=== PATIENT | female | born 1980 | race Caucasian/White ===

== ENCOUNTER 2021-07-18 10:01 | Emergency (ER) | payer OTHER, SELFPAY ==
[2021-07-18 10:17] VITALS: BP 115/74; PULSE 104; RESP 18; TEMP 36.3; O2SAT 100
--- NOTE | 2021-07-18 10:28 | ED.URI ---
HPI - URI/Sore Throat General Chief Complaint: Upper Respiratory Infection Stated Complaint: fever,sorethorat,congestion Time Seen by Provider: 07/18/21 10:29 Source: patient Mode of arrival: ambulatory Limitations: no limitations History of Present Illness HPI Narrative: 41-year-old female presents with complaint of runny nose, sore throat, cough, low-grade fever, body aches and headache for 4 days. Taking [id number] medications to treat her symptoms. Reports that she just visited [place] with family. Denies chest pain and shortness of breath. No other symptoms. Patient is COVID vaccinated. All systems reviewed and negative except as noted above. Related Data Home Medications Medication Instructions Recorded Confirmed Unknown Iud 07/18/21 cetirizine 10 mg DAILY 07/18/21 07/18/21 cholecalciferol (vitamin D3) 50 mcg PO DAILY 07/18/21 07/18/21 colestipol 1 g PO QID 07/18/21 07/18/21 levothyroxine 50 mcg DIRECTED 07/18/21 07/18/21 Allergies Allergy/AdvReac Type Severity Reaction Status Date / Time metoclopramide Allergy Mild Muscle Unverified 07/18/21 10:29 Spasms prochlorperazine Allergy Mild Muscle Unverified 07/18/21 10:29 Spasms Review of Systems Review of Systems: CONSTITUTIONAL: Reports fever, chills, or sweats. EYES: Denies visual changes, redness, or discharge. ENT: Reports rhinorrhea, congestion, sore throat. Denies otalgia. CARDIOVASCULAR: Denies chest pain, palpitations, or edema. RESPIRATORY: Reports cough. Denies dyspnea. GASTROINTESTINAL: Denies abdominal pain, nausea, vomiting, or diarrhea. GENITOURINARY: Denies dysuria or hematuria. SKIN: Denies rash or itching. MUSCULOSKELETAL: Denies back pain, joint pain, or myalgia. NEUROLOGIC: Denies headache, numbness, or weakness. PSYCHIATRIC: Denies anxiety or depression. All other systems reviewed are negative, except as documented in HPI. PMFSH Comments At time of signature, agree with nursing past medical, surgical, social and family history. There is no relevant family history pertinent to the presenting complaint. Exam Narrative: GENERAL: This is a well-nourished, well-developed patient. Patient is ill-appearing but in no distress. HEAD: normocephalic, atraumatic. EYES: PERRL. Sclera clear/white. Vision is grossly intact. EARS: External ears normal, auditory canals clear and without drainage, TMs normal without perforation. Hearing grossly intact. NOSE: External nose normal with clear nasal drainage. THROAT: Mucous membranes moist, posterior pharynx clear. NECK: Neck supple, non-tender without lymphadenopathy, masses or thyromegaly. CARDIOVASCULAR: Regular rate and rhythm without murmurs, gallops, or rubs. RESPIRATORY: Clear to auscultation. Breath sounds equal bilaterally. No wheezes, rales, or rhonchi. SKIN: warm, Dry, intact with no suspicious lesions or rash, good texture and turgor. NEURO: awake, alert, and oriented to person, place and time. There were no obvious focal neurologic abnormalities. EXTREMITIES: N normal range of motion to all extremities. Course Course Level of Care: Express Care Visit Vital Signs Vital signs: Vital Signs Temperature 36.3 C L 07/18/21 10:17 Pulse Rate 104 H 07/18/21 10:17 Respiratory Rate 18 07/18/21 10:17 Blood Pressure 115/74 07/18/21 10:17 Pulse Oximetry 100 07/18/21 10:17 Temperature 36.3 C L 07/18/21 10:17 Pulse Rate 104 H 07/18/21 10:17 Respiratory Rate 18 07/18/21 10:17 Blood Pressure 115/74 07/18/21 10:17 Pulse Oximetry 100 07/18/21 10:17 Reviewed MDM - URI/Sore Throat MDM Narrative Medical decision making narrative: Patient is aware of diagnosis, understands and agrees to treatment plan. Anticipatory guidance given. Patient agrees to follow-up as directed and is aware of reasons to seek care at the emergency department. Portions of this record may have been created with voice recognition software Rapid COVID-positive. Discussed resul
== END 2021-07-18 10:44 | disposition home or self-care (01) ==
PROVIDERS: Emergency Provider Nurse Practitioner Family; PCP Family Medicine
DX: U07.1 COVID-19 (principal)
CPT/HCPCS: 87081; 87426; 87804; 87880; 99213; C9803; G0463

== ENCOUNTER 2021-09-24 15:03 | Emergency (ER) | payer OTHER, SELFPAY ==
[2021-09-24 15:21] VITALS: BP 114/61; PULSE 83; RESP 18; TEMP 36.8; O2SAT 100
--- NOTE | 2021-09-24 15:44 | ED.SKABFB ---
HPI - Skin/Abscess/Foreign Bdy General Chief complaint: Urogenital-Female Stated complaint: Possible UTI Time Seen by Provider: 09/24/21 15:45 History of Present Illness HPI narrative: Destini Restrepo is a 41 yo female a PMH of hypothyroid, cystitis, who comes with complaints of feeling full mild tenderness to her abdomen typical symptoms when he she has a cystitis flare she is being treated for interstitial cystitis and is not currently on anything but her urologist states that when she develops the symptoms and 6 treatments that she should make sure that the urine dipstick is followed up by a culture. She has leukocyte esterase in her urine and because she is symptomatic well I will go ahead and treat her She had COVID 2 months ago and still has post-COVID cough and is requesting something to help manage that Related Data Home Medications Medication Instructions Recorded Confirmed cetirizine 10 mg tablet 10 mg DAILY 07/18/21 09/24/21 cholecalciferol (vitamin D3) 50 50 mcg PO DAILY 07/18/21 09/24/21 mcg (2,000 unit) tablet colestipol 1 gram tablet 1 g PO QID 07/18/21 09/24/21 levothyroxine 50 mcg tablet 50 mcg DIRECTED 07/18/21 09/24/21 escitalopram oxalate 10 mg tablet 10 mg PO DAILY 09/24/21 09/24/21 levonorgestrel 20 mcg/24 hours (7 See Rx Instructions .Route .COMPLEX 09/24/21 09/24/21 yrs) 52 mg intrauterine device (Mirena) Allergies Allergy/AdvReac Type Severity Reaction Status Date / Time metoclopramide Allergy Mild Muscle Verified 09/24/21 15:16 Spasms prochlorperazine Allergy Mild Muscle Verified 09/24/21 15:16 Spasms Review of Systems Review of Systems: CONSTITUTIONAL: Denies fever, chills, sweats. EYES: Denies visual changes, redness, discharge. ENT: Denies rhinorrhea, congestion, sore throat, otalgia. CARDIOVASCULAR: Denies chest pain, palpitations, edema. RESPIRATORY: Denies dyspnea, wheezing,has cough GASTROINTESTINAL: Denies abdominal pain, nausea, vomiting, diarrhea. GENITOURINARY: Has dysuria, hematuria, abnormal discharge SKIN: Denies rash or itching. NEUROLOGIC: Denies numbness, or focal weakness. PSYCHIATRIC: Denies anxiety or depression. [facility] Past Medical History Medical History Cystitis Hypothyroid Social History Social History (Updated 09/24/21 @ 15:48 by Willa Salazar CNP) Smoking status: Never smoker Alcohol intake: never Comments At time of signature, I agree with nursing past medical, surgical, social and family history. There is no relevant family history pertinent to the presenting complaint. Exam Narrative: GENERAL: This is a well-nourished, well-developed patient, in mild distress. HEAD: normocephalic, atraumatic. EYES: . Sclera clear/white. Vision is grossly intact. EARS: External ears normal, . Hearing grossly intact. NOSE: External nose normal without nasal discharge, nares without redness, no rhinorrhea. THROAT: Mucous membranes moist, NECK: Neck supple, non-tender CARDIOVASCULAR: Regular rate and rhythm without murmurs, gallops, or rubs. RESPIRATORY: Clear to auscultation. Breath sounds equal bilaterally. No wheezes, rales, or rhonchi. GASTROINTESTINAL: Abdomen soft, mild tender, SKIN: warm, intact with no suspicious lesions or rash, good texture and turgor. NEURO: awake, alert, and oriented to person, place and time. There were no obvious focal neurologic abnormalities. Steady gait EXTREMITIES: Normal range of motion. BACK: Nontender without deformity Course Course Emergency Course: Patient here with symptoms of a cystitis flare she is being treated for interstitial cystitis Urine dip shows trace leukocyte Treated with Keflex 500 mg 1 twice daily x5 days and Diflucan for possible fungal infection Given Tessalon Perles for post-COVID cough Level of Care: Express Care Visit Vital Signs Vital signs: Vital Signs Temperature 98.2 F 09/24/21 15:21 Pulse Rate 83 07
== END 2021-09-24 15:58 | disposition home or self-care (01) ==
PROVIDERS: Emergency Provider Nurse Practitioner; PCP Family Medicine
DX: N30.90 Cystitis, unspecified without hematuria (principal); R05.9 Cough, unspecified; U09.9 Post COVID-19 condition, unspecified; E03.9 Hypothyroidism, unspecified
CPT/HCPCS: 81003; 87086; 99213; G0463

== ENCOUNTER 2024-10-24 09:55 | Emergency (ER) | payer OTHER, SELFPAY ==
--- NOTE | 2024-10-24 09:58 | ED.FEMALEGU ---
HPI - Female Genitourinary General Chief complaint: Urogenital-Female Stated complaint: Urinary Irritation Time Seen by Provider: 10/24/24 09:59 Source: patient Mode of arrival: ambulatory Limitations: no limitations History of Present Illness HPI Narrative: Destini is a 44-year-old female patient presenting to the clinic today with complaints of burning with urination and urinary frequency x1 week. Is concerned that she is having a interstitial cystitis flare however she wants to rule out a urinary tract infection. Denies any nausea, back pain, or abdominal pain. States pain is specifically over her bladder and she has urinary frequency. Denies any concern for STIs. Denies any vaginal discharge. Related Data Home Medications ?Medication ?Instructions ?Recorded ?Confirmed ?Last Taken ?Type cetirizine 10 mg tablet 10 mg DAILY 07/18/21 07/17/24 Unknown History colestipol 1 gram tablet 1 g PO QID 07/18/21 07/17/24 Unknown History levothyroxine 50 mcg tablet 50 mcg DIRECTED 07/18/21 07/17/24 Unknown History levonorgestrel 20.4 mcg/24 hr (up 1 device intrauterine ONCE 06/02/24 07/17/24 Unknown History to 8 yrs) 52 mg intrauterine device (Liletta) lisdexamfetamine 70 mg capsule mg PO 06/02/24 07/17/24 Unknown History (Vyvanse) vilazodone 20 mg tablet mg PO 06/02/24 07/17/24 Unknown History Allergies Allergy/AdvReac Type Severity Reaction Status Date / Time metoclopramide Allergy Mild Muscle Verified 10/24/24 10:05 Spasms prochlorperazine Allergy Mild Muscle Verified 10/24/24 10:05 Spasms PMFSH Past Medical History Medical History Presence of Liletta IUD Anxiety Allergies Hypothyroid Cystitis Surgical History Surgical History S/P small bowel resection History of cholecystectomy Hx of appendectomy H/O laparoscopy 2001 and 2009 Family History Family History Sibling Colon cancer Depression Grandparent Colon cancer Diabetes mellitus Thyroid disease Mother Depression Social History Social History (Updated 07/17/24 @ 09:22 by Hernando Licea MA) Smoking status: Never smoker Alcohol intake: never Substance use: never Substance use type: does not use Current Housing: Decline to Answer Concerned About Future Housing: Decline to Answer Difficulty Paying Gas/Electric Bills: Decline to Answer Difficulty Paying for Meds: Decline to Answer Currently Unemployed: Decline to Answer Education: Decline to Answer Difficulty w/ Childcare or Family Care: Decline to Answer Living arrangements: with family Occupation/Education: occupation Additional occupation/education comments: [employer] Comments At the time of my signature, I reviewed and agree with the nursing past medical, surgical, social, and family history. There is no relevant family history pertinent to the patient complaint. Course Course Emergency Course: Portions of this record may have been created with voice recognition software. Level of Care: Express Care Visit Vital Signs Vital signs: Vital Signs Temperature 36.4 C L 10/24/24 10:02 Pulse Rate 88 10/24/24 10:02 Respiratory Rate 18 10/24/24 10:02 Blood Pressure 115/64 10/24/24 10:02 Pulse Oximetry 100 10/24/24 10:02 Oxygen Delivery Room Air 10/24/24 10:02 Temperature 36.4 C L 10/24/24 10:02 Pulse Rate 88 10/24/24 10:02 Respiratory Rate 18 10/24/24 10:02 Blood Pressure 115/64 10/24/24 10:02 Pulse Oximetry 100 10/24/24 10:02 Oxygen Delivery Room Air 10/24/24 10:02 Vital signs reviewed MDM - Female Genitourinary MDM Narrative Medical decision making narrative: At the time of visit patient is resting comfortably on the exam table. Patient appears to be nontoxic. complaints of burning with urination and urinary frequency x1 week. Is concerned that she is having a interstitial cystitis flare however she wants to rule out a urinary tract infection. Denies any nausea, back pain, or abdominal pain. States pain is specifically over her bladder and she has urinary frequency. Denies any concern for STIs. Denies any vaginal discharge. On exam patient has suprapubic tenderness, normal bowel sounds, nontender to palpation over the abdomen, no CVAT tenderness. UA dip ordered. Labs: Urinalysis dip was performed and is negative for any sign of leukocytes, nitrates, blood, protein, or ketones. Plan: I suspect patient has interstitial cystitis flare. Will send urine for culture per patient request. Supportive measures were discussed with the patient and they voiced understanding discharge instructions and agrees to treatment plan. Return precautions reviewed Differential Diagnosis Differential diagnosis: Likely urinary tract infection and cystitis Lab Data Labs: Lab Results 10/24/24 Range/Units 10:07 POC Urine Color Dark POC Urine Clarity Clear POC Urine pH 5.5 POC Ur Specif [place] 1.025 POC Urine Protein Negative (Negative) POC Ur Glucose (UA) Negative (Negative) POC Urine Ketones Negative (Negative) POC Urine Blood Negative (Negative) POC Urine Nitrite Negative (Negative) POC Urine Bilirubin Negative (Negative) POC Urine Urobilinogen 0.2 POC U Leukocyte Esteras Negative (Negative) Discharge Plan Discharge Clinical Impression: Interstitial cystitis Patient Disposition: Home Condition: Stable Instructions: Antibiotic Form, Interstitial Cystitis (ED) Additional Instructions: Urinalysis is negative for any sign of infection, blood, protein, or ketones. Will send for culture. May take azo as discussed for urinary symptoms Increase fluids and stay well hydrated Wipe front to back. May use wet wipes. Avoid tub baths If sexually active- pee before and after intercourse. Wear cotton panties Avoid tight clothing up against the genitals Follow up with your PCP in 1 week if symptoms persist. Patient Language: Tuvaluan Prescriptions: No Action cetirizine 10 mg tablet 10 mg DAILY levothyroxine 50 mcg tablet 50 mcg DIRECTED colestipol 1 gram tablet 1 g PO QID lisdexamfetamine [Vyvanse] 70 mg capsule PO vilazodone 20 mg tablet PO Liletta 20.4 mcg/24 hr (8 yrs) 52 mg intrauterine device 1 device intrauterine ONCE Rx Instructions: as a single dose estradiol [Vivelle-Dot] 0.075 mg/24 hr patch semiweekly 1 patch transdermal 2XW Qty: 8 11RF Rx Instructions: apply 1 patch for 3 days alternating with 1 patch for 4 days each week Follow-up/Referrals: Eddie,NOAH Cota [Primary Care Provider, Unknown] Time of Disposition: 10:23 Quality NIHSS Nursing Documentation ED NIHSS nursing documentation: reviewed/agree
--- OUTSIDE RECORDS SUMMARY | 2024-10-24 09:58 | XMS_ITS | Continuity of Care Document ---
Author Name [facility] Organization [facility] Care Team Providers Care Fire Safety Manager Name Role Phone [facility] Unavailable Unavailable Problems Combined list of problems from Department of Defense and Veterans Affairs facilities. It does not include entries that were removed or entered in error. 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 DoD FATIGUE Active Condition DoD STRABISMUS - RIGHT EYE Active Condition DoD Cervix Sample Taken For Pap Smear Inactive Condition DoD ROUTINE GYNECOLOGICAL EXAM WITH CERVICAL PAP SMEAR Inactive Condition DoD CYSTITIS CHRONIC INTERSTITIAL Active Condition DoD Patient Education Inactive Condition DoD BREAST LUMP OR MASS LEFT Active Condition DoD visit for: screening exam malignant neoplasm skin Inactive Condition DoD BENIGN SKIN NEOPLASM Inactive Condition [facility] Gynecologic Services Intrauterine Device (IUD) Checking Inactive Condition Do[facility] Gynecologic Services Intrauterine Device (IUD) Insertion Active Condition [facility] Gynecologic Services Contraceptive General Counseling Active Condition DoD Macules And Papules Inactive Condition D oD joint pain, localized in the wrist Active Condition DoD CYSTOCELE Active Condition DoD VAGINAL WALL PROLAPSE Active Condition DoD HYPERTHYROIDISM Active Condition DoD DYSPAREUNIA Active Condition DoD MASTITIS ACUTE RIGHT Active Condition DoD visit for: routine eye exam Inactive Condition DoD Laboratory Studies Inactive Condition Do D CONDITIONS INFLUENCING HEALTH STATUS Active Condition DoD CONJUNCTIVITIS CHRONIC ALLERGIC Active Condition DoD MULTIPLE GESTATION Inactive Condition Do D Patient Education - Dietary Active Condition DoD Diabetes Patient Education - Blood Glucose Monitor Home Active Condition DoD Patient Education - Diabetes Inactive Condition DoD visit for: screening exam for malignant neoplasm cervix Inactive Condition DoD DIABETES TRINI GESTATIONAL - ANTEPART COND OR PRIOR COMP DELIV Active Condition DoD COMPLICATIONS: ABNORMAL GLUCOSE TOLERANCE Active Condition DoD MULTIPLE GESTATION - TWINS - ANTEPARTUM CONDITION OR COMPLIC Inactive Condition DoD visit for: screening exam depression Inactive Condition DoD Ed Initial Visit Description Of Care Plan Inactive Condition DoD pain during urination (dysuria) Active Condition DoD Test Positive Inactive Condition DoD FEMALE PELVIC PAIN Inactive Condition Do D AMBLYOPIA STRABISMIC RIGHT EYE Active Condition [facility] ASTIGMATISM - REGULAR Active Condition [facility] REFRACTIVE ERROR - MYOPIA Active Condition [facility] visit for: new patient eye exam Inactive Condition [facility] headache Inactive Condition [facility] MIGRAINE HEADACHE Active Condition [facility] FEMALE INFERTILITY SECONDARY Active Condition [facility] FEMALE INFERTILITY Active Condition [facility] visit for: administrative purpose Inactive Condition [facility] visit for: issue medical certificate Active Condition [facility] Inquiry And Counseling: Contraceptive Practices Active Condition Counseled pt about option of IUD. 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 Pt informed that she will likely incur a co-pay since IUD insertion is something that she could have had performed [place] or [place] DoD Medications Combined list of outpatient medications from Department of Defense and Veterans Affairs facilities.Medications provided include 1) outpatient medications from the last 15 months, and 2) patient-reported medications. Medication Details Route Status Patient Instructions Prescription Expires Prescription Number Last Dispense Date Ordering Provider Order Date Order Qty Source DEXTROAMPHE TAMINE-AMPH ETAMINE (dextroamph etamine sulf-saccha rate/amphet amine sulf-aspart ate), 20 MG, TABLET, ORAL, [employer], 100 ea. BOTTLE Active [id number] 2023 30 Pharmac y Data Transac tion Service Facilit y levothyroxi ne 75 mcg (0.075 mg) oral tablet TAKE ONE TABLET IN THE MORNING, # 90 EA, 1 total refill(s ), Acute Complet ed 10/02/20222022 90.0 Ambulat ory Pharmac y TIROSINT-SO L (levothyrox ine sodium), 75 MCG/ML, SOLUTION, ORAL, [employer], 1 ml AMPUL Active [id number] 2023 90 Pharmac y Data Transac tion Service Facilit y VYVANSE (LISDEXAMFE TAMINE DIMESYLATE) , 70MG, CAPSULE, ORAL, [employer] 100 ea. BOTTLE Active [id number] 2023 30 Pharmac y Data Transac tion Service Facilit y Allergies, Adverse Reactions, Alerts Combined list of allergies from Department of Defense and Veterans Affairs facilities. It does not include entries that were removed or entered in error. Substance Category Reaction Severity Reaction type Status Date Reported Comments Source COMPAZINE (Local.comERA ZINE MALEATE) Drug allergy (disorder) Unknown active 0 [place] metoclopramid e Propensity to adverse reactions to substance Unknown Active 0 Pt. reports reaction as Muscle Spasms. Unknown Organizat ion prochlorperaz ine Propensity to adverse reactions to substance Unknown Active 0 Pt. reports reaction as Muscle Spasms. Unknown Organizat ion REGLAN (METOCLOPRAMI DE HCL) Drug allergy (disorder) Unknown active 0 [place] Immunizations Combined list of available immunizations from the Department of Defense and Veterans Affairs facilities. Immunization Series Date Given Administered By Site Reaction Lot Number CVX Code Drug Carbide Operator Status Comments Source COVID Vaccine Pfizer 2020 zKamini t Arm [id number] [facility] complet ed COVID Vaccine Pfizer 05/27/20 Given Ambulat ory Pharmac y SARS-COV-2 (COVID-19) vaccine, mRNA, spike protein, LNP, preservative free, 30 mcg/0.3mL dose 2 2020 Unknown, Provider [id number] IPXI, [employer] (PFR) complet ed SARS-COV- 2 (COVID-19 ) vaccine, mRNA, spike protein, LNP, preservat marah free, 30 mcg/0.3mL dose DoD COVID Vaccine Pfizer 2020 zzLef t Arm [id number] 208 [facility] complet ed COVID Vaccine Pfizer 05/05/20 Given Ambulat ory Pharmac y SARS-COV-2 (COVID-19) vaccine, mRNA, spike protein, LNP, preservative free, 30 mcg/0.3mL dose 1 2020 Unknown, Provider [id number] 208 [employer], [employer] (PFR) complet ed SARS-COV- 2 (COVID-19 ) vaccine, mRNA, spike protein, LNP, preservat marah free, 30 mcg/0.3mL dose DoD tuberculin purified protein derivative 2020 zzLef t Arm [id number] 96 sanofi pasteur complet ed Patient Tolerance : Negative Ambulat ory Pharmac y tuberculin skin test; purified protein derivative solution, intradermal 1 2020 Unknown, Provider [id number] 96 Sanofi Pasteur ([facility]) complet ed tuberculi n skin test; purified protein derivativ e solution, intraderm al DoD tuberculin purified protein derivative 2020 zzLef t Arm [id number] 96 sanofi pasteur complet ed Patient Tolerance : Negative Ambulat ory Pharmac y tetanus-dipht h toxoids (Td) adult/adol 2020 zzLef t Arm [id number] 09 sanofi pasteur complet ed tetanus-d iphth toxoids (Td) adult/ado l 03/16/20 Given Ambulat ory Pharmac y influenza, injectable, quadrivalent- pf 2020 zzRig ht Arm [id number] 150 [employer] complet ed influenza , injectabl e, quadrival ent-pf 03/16/20 Given Ambulat ory Pharmac y hepatitis B adult vaccine 2020 zzRig ht Arm [id number] [employer]Smith[employer] ne complet ed hepatitis B adult vaccine 03/16/20 Given Ambulat ory Pharmac y tetanus and diphtheria toxoids, adsorbed, preservative free, for adult use (2 Lf of tetanus toxoid and 2 Lf of diphtheria toxoid) 1 2020 Unknown, Provider [id number] 09 Sanofi Pasteur ([facility]) complet ed tetanus and diphtheri a toxoids, adsorbed, preservat marah free, for adult use (2 Lf of tetanus toxoid and 2 Lf of diphtheri a toxoid) DoD hepatitis B vaccine, adult dosage 1 2020 Unknown, Provider [id number] [facility] ([facility]) complet ed hepatitis B vaccine, adult dosage DoD tuberculin skin test; purified protein derivative solution, intradermal 1 2020 Unknown, Provider [id number] 96 Sanofi Pasteur ([facility]) complet ed tuberculi n skin test; purified protein derivativ e solution, intraderm al DoD Influenza, injectable, quadrivalent, preservative free 1 2020 Unknown, Provider [id number] 150 Se[employer] (SEQ) complet ed Influenza , injectabl e, quadrival ent, preservat marah free DoD influenza, injectable, quadrivalent- pf 2018 [id number] 150 GlaxoSmithKli ne complet ed influenza , injectabl e, quadrival ent-pf 01/10/19 Given Ambulat ory Pharmac y Influenza, injectable, quadrivalent, preservative free 2018 Unknown, Provider [id number] 150 [employer] ([facility]) complet ed Influenza , injectabl e, quadrival ent, preservat marah free DoD influenza, injectable, quadrivalent- pf 2017 zzRig Arm [id number] 150 GlaxoSmithKli ne complet ed influenza , injectabl e, quadrival ent-pf 12/25/17 Given Ambulat ory Pharmac y Influenza, injectable, quadrivalent, preservative free 1 2017 JORGE ANN MARIE Osman [id number] 150 [facility] Influenza , injectabl e, quadrival ent, preservat marah free DoD influenza, injectable, quadrivalent- pf 2016 zzLef t Arm [id number] 150 GlaxoSmithK[employer] ne complet ed influenza , injectabl e, quadrival ent-pf 12/21/16 Given Ambulat ory Pharmac y Influenza, injectable, quadrivalent, preservative free 1 2016 SOLANGE HATFIELD [id number] 150 [facility] complet ed Influenza , injectabl e, quadrival ent, preservat marah free DoD influenza, injectable, [facility]rivalent [id number] [employer] complet ed influenza , injectabl e, quadrival ent 01/24/16 Given Ambulat ory Pharmac y influenza, injectable, quadrivalent, contains preservative 1 2015 Unknown, Provider [id number] (IDB) complet ed influenza , injectabl e, quadrival ent, contains preservat marah DoD influenza, injectable, quadrivalent- pf 2015 zzRig Arm [id number] 150 GlaxoSmithK[employer] ne complet ed influenza , injectabl e, quadrival ent-pf 03/08/15 Given Ambulat ory Pharmac y Influenza, injectable, quadrivalent, preservative free 1 2015 Unknown, Provider [id number] 150 [employer] ([facility]) complet ed Influenza , injectabl e, quadrival ent, preservat marah free DoD influenza, live, intranasal,qu adrivalent 2013 [id number] [employer] comple t ed influenza , live, intranasa l,quadriv alent 12/24/13 Given Ambulat ory Pharmac y influenza, live, intranasal, quadrivalent 1 2013 Unknown, Provider [id number] 149 [employer] ([facility]) complet ed influenza , live, intranasa l, quadrival ent DoD influenza, seasonal, injectable-pf 2013 zzRig ht Arm [id number] 140 sanofi pasteur complet ed influenza , seasonal, injectabl e-pf 04/08/13 Given Ambulat ory Pharmac y Influenza, seasonal, injectable, preservative free 5 2013 Unknown, Provider [id number] 140 Sanofi Pasteur ([facility]) complet ed Influenza , seasonal, injectabl e, preservat marah free DoD influenza, seasonal, injectable-pf 2011 zzRig ht Arm [id number] 140 [employer] complet ed influenza , seasonal, injectabl e-pf 12/06/11 Given Ambulat ory Pharmac y Influenza, seasonal, injectable, preservative free 4 2011 Unknown, Provider [id number] 140 [employer] ([facility]) complet ed Influenza , seasonal, injectabl e, preservat marah free DoD influenza virus vaccine,split 2010 zzRig Arm [id number] 15 [employer] complet ed influenza virus vaccine,s plit 05/25/10 Given Ambulat ory Pharmac y tetanus, diphtheria, acellular pertu is 2010 zzLef t Arm [id number] 115 sanofi pasteur complet ed tetanus, diphtheri a, acellular pertussis 05/25/10 Given Ambulat ory Pharmac y influenza virus vaccine, split virus (incl. purified surface antigen)-reti red CODE 1 2010 Unknown, Provider [id number] 15 [employer] ([facility]) complet ed influenza virus vaccine, split virus (incl. purified surface antigen)- retired CODE DoD tetanus toxoid, reduced diphtheria toxoid, and acellular pertu is vaccine, adsorbed 1 2010 Unknown, Provider [id number] 115 Sanofi Pasteur ([facility]) complet ed tetanus toxoid, reduced diphtheri a toxoid, and acellular pertussis vaccine, adsorbed DoD tuberculin purified protein derivative 2009 zzLef t Arm [id number] 96 sanofi pasteur complet ed Patient Tolerance : Negative Ambulat ory Pharmac y tuberculin skin test; purified protein derivative solution, intradermal 1 2009 Unknown, Provider [id number] 96 Sanofi Pasteur ([facility]) complet ed tuberculi n skin test; purified protein derivativ e solution, intraderm al DoD influenza virus vaccine,split 2008 zzLef t Arm [id number] 15 sanofi pasteur complet ed influenza virus vaccine,s plit 03/19/08 Given Ambulat ory Pharmac y influenza virus vaccine, split virus (incl. purified surface antigen)-reti red CODE 1 2008 Unknown, Provider [id number] 15 Sanofi Pasteur ([facility]) complet ed influenza virus vaccine, split virus (incl. purified surface antigen)- retired CODE DoD influenza virus vaccine,split 2005 zzLef t Arm [id number] 15 sanofi pasteur complet ed influenza virus vaccine,s plit 02/01/06 Given Ambulat ory Pharmac y influenza virus vaccine, split virus (incl. purified surface antigen)-reti red CODE 1 2005 Unknown, Provider [id number] 15 Sanofi Pasteur ([facility]) complet ed influenza virus vaccine, split virus (incl. purified surface antigen)- retired CODE DoD DTaP 2004 Transcr ibed 20 Unknown complet ed DTaP 01/09/05 Given Ambulat ory Pharmac y diphtheria, tetanus toxoids and acellular pertu is vaccine 2 2004 Unknown, Provider Transcr ibed 20 Other (OTH) complet ed diphtheri a, tetanus toxoids and acellular pertussis vaccine DoD hepatitis B pediatric/ado lescent 1996 Transcr ibed 08 Unknown complet ed hepatitis B pediatric /adolesce nt 11/19/96 Given Ambulat ory Pharmac y tetanus, diphtheria, acellular pertu is 1996 115 complet ed tetanus, diphtheri a, acellular pertussis 11/19/96 Given Ambulat ory Pharmac y Td (adult)-PF 1996 113 complet ed Td (adult)-P F 11/19/96 Given Ambulat ory Pharmac y hepatitis B vaccine, pediatric or pediatric/ado lescent dosage 1 1996 Unknown, Provider Transcr ibed 08 Other (OTH) complet ed hepatitis B vaccine, pediatric or pediatric /adolesce nt dosage DoD tetanus and diphtheria toxoids, adsorbed, preservative free, for adult use (5 Lf of tetanus toxoid and 2 Lf of diphtheria toxoid) 1 1996 Unknown, Provider 113 Transcribed (TRS) complet ed tetanus and diphtheri a toxoids, adsorbed, preservat marah free, for adult use (5 Lf of tetanus toxoid and 2 Lf of diphtheri a toxoid) DoD tetanus toxoid, reduced diphtheria toxoid, and acellular pertu is vaccine, adsorbed 1 1996 Unknown, Provider 115 Transcribed (TRS) complet ed tetanus toxoid, reduced diphtheri a toxoid, and acellular pertussis vaccine, adsorbed DoD measles/mumps /rubella virus vaccine 1992 Transcr ibed 03 Unknown complet ed measles/m umps/rube lla virus vaccine 08/05/92 Given Ambulat ory Pharmac y measles, mumps and rubella virus vaccine 2 1992 Unknown, Provider Transcr ibed 03 Other (OTH) complet ed measles, mumps and rubella virus vaccine DoD poliovirus vaccine, inactivated 1987 Transcr ibed 10 Unknown complet ed polioviru s vaccine, inactivat ed 06/11/87 Given Ambulat ory Pharmac y DTaP 1987 Transcr ibed 20 Unknown complet ed DTaP 06/11/87 Given Ambulat ory Pharmac y poliovirus vaccine, inactivated 4 1987 Unknown, Provider Transcr ibed 10 Other (OTH) complet ed polioviru s vaccine, inactivat ed DoD diphtheria, tetanus toxoids and acellular pertu is vaccine 3 1987 Unknown, Provider Transcr ibed 20 Other (OTH) complet ed diphtheri a, tetanus toxoids and acellular pertussis vaccine DoD DTaP 1985 Transcr ibed 20 Unknown complet ed DTaP 08/26/85 Given Ambulat ory Pharmac y diphtheria, tetanus toxoids and acellular pertu is vaccine 3 1985 Unknown, Provider Transcr ibed 20 Other (OTH) complet ed diphtheri a, tetanus toxoids and acellular pertussis vaccine DoD poliovirus vaccine, inactivated 1985 Transcr ibed 10 Unknown complet ed polioviru s vaccine, inactivat ed 05/13/85 Given Ambulat ory Pharmac y poliovirus vaccine, inactivated 3 1985 Unknown, Provider Transcr ibed 10 Other (OTH) complet ed polioviru s vaccine, inactivat ed DoD DTaP 1985 Transcr ibed 20 Unknown complet ed DTaP 05/05/85 Given Ambulat ory Pharmac y diphtheria, tetanus toxoids and acellular pertu is vaccine 3 1985 Unknown, Provider Transcr ibed 20 Other (OTH) complet ed diphtheri a, tetanus toxoids and acellular pertussis vaccine DoD measles/mumps /rubella virus vaccine 1984 Transcr ibed 03 Unknown complet ed measles/m umps/rube lla virus vaccine 02/10/85 Given Ambulat ory Pharmac y measles, mumps and rubella virus vaccine 1 1984 Unknown, Provider Transcr ibed 03 Other (OTH) complet ed measles, mumps and rubella virus vaccine DoD poliovirus vaccine, inactivated 1984 Transcr ibed 10 Unknown complet ed polioviru s vaccine, inactivat ed 01/09/85 Given Ambulat ory Pharmac y poliovirus vaccine, inactivated 2 1984 Unknown, Provider Transcr ibed 10 Other (OTH) complet ed polioviru s vaccine, inactivat ed DoD poliovirus vaccine, inactivated 1984 Transcr ibed 10 Unknown complet ed polioviru s vaccine, inactivat ed 05/03/84 Given Ambulat ory Pharmac y poliovirus vaccine, inactivated 1 1984 Unknown, Provider Transcr ibed 10 Other (OTH) complet ed polioviru s vaccine, inactivat ed DoD DTaP 1982 Transcr ibed 20 Unknown complet ed DTaP 82 Given Ambulat ory Pharmac y diphtheria, tetanus toxoids and acellular pertu is vaccine 1 1982 Unknown, Provider Transcr ibed 20 Other (OTH) complet ed diphtheri a, tetanus toxoids and acellular pertussis vaccine DoD Encounters Combined list of: 1) Encounters from Department of Veterans Affairs facilities going backup to the last 18 months, not all VA inpatient encounters are included; 2) Encounters from the Department of Defense facilities going backup to 280 months. Location Location Details Encounter Type Encounter Number Reason For Visit Attending Provider ADM Date DC Date Status Disposition Source [address] [place] [address] Cesar SEGAL ([facility])(Sco tt [facility] Fam Res [place] [place]) OUTPATIENT [id number] referra URSULA Dickson 10/23 Released w/o Limitations [employer] Cesar SEGAL ([facility])(S cott [facility] Fam Res [facility] [place]) [employer]([facility]) OUTPATIENT [id number] [place] MARITA Rothman 07/30 Released w/o Limitations [employer]([facility]) [place]([facility]) OUTPATIENT [id number] Referra l for inferti litJAKE Addison 01/11 Released w/o Limitations [place] [place]([facility]ne [facility]) OUTPATIENT [id number] inferti lity w/up- new STAN RUDOLPH C 02/15 Released w/o Limitations [place](Gy necolog y) [place](Gyne [facility]) TELE CONSULT [id number] Lab results STAN RUDOLPH C 03/03 [place](Gy necolog [facility]) [place](Gyne cology) TELE CONSULT [id number] Pt wants to inquire about lab results STAN RUDOLPH C 03/07 [place](Gy necolog [place]) [place](Gyne cology) TELE CONSULT [id number] Inferti lity plan STAN RUDOLPH C 03/08 [place](Gy necolog [facility]) [place](Gyne cology) TELE CONSULT [id number] Lab orders STAN RUDOLPH C 03/15 [place](Gy necolog [place]) [place](Gyne cology) TELE CONSULT [id number] lab results JACKIE THOMAS 03/25 [place](Gy necolog [facility]) [place](Gyne cology) TELE CONSULT [id number] New [place] date JACKIE THOMAS 03/29 [place](Gy necolog [facility]) [place]([facility]) OUTPATIENT [id number] PAUL, blurry vision x 2 days URSULA ROSSI 03/29 Released w/o Limitations [place] [place]([facility]) OUTPATIENT [id number] rout exam Tee CLEARY 03/29 Released w/o Limitations [place] [place](Gyne cology) OUTPATIENT [id number] pre op for 18FEB JACKIE THOMAS 04/11 Released w/o Limitations [place](Gy necolog [facility]) [place](Gyne cology) OUTPATIENT [id number] post op f/up JACKIE THOMAS 05/09 Released w/o Limitations [place](Gy necolog [facility]) [facility](Gyne cology) TELE CONSULT [id number] Clomid use concern JACKIE THOMAS 05/15 [place](Gy necolog y) [facility]) OUTPATIENT [id number] c/o pelvic pain GIRJOEL RYLAND A 06/01 Released w/o Limitations [facility]) [facility]) TELE CONSULT [id number] AMP 2 wk ob appt JULIO ALCAZAR 06/14 Referred for Appointment [facility]) [facility](Obst etrics/Gy necology) TELE CONSULT [id number] Dysuria STAN RUDOLPH 06/22 [facility](Ob stetric s/Gynec ology) [facility](Obst etrics/Gy necology) OUTPATIENT [id number] initial OB intake TERRENCE SIGALA 06/28 Released w/o Limitations [facility](Ob stetric s/Gynec ology) [facility](Obst etrics/Gy necology) OUTPATIENT [id number] viabili ty scan JACKIE THOMAS 07/04 Released w/o Limitations [place](Ob stetric s/Gynec ology) [facility](Gyne cology) TELE CONSULT [id number] abnorma l 1 hour THONG KIM V 07/05 [place](Gy necolog y) [place](Obst etrics/Gy necology) TELE CONSULT [id number] Pt has questio ns JACKIE THOMAS 07/06 [place](Ob stetric s/Gynec ology) [place](Obst etrics/Gy necology) TELE CONSULT [id number] concern s about 3 hr GTT JACKIE THOMAS 07/15 [place](Ob stetric s/Gynec ology) [place]([facility]/Gy necology) OUTPATIENT [id number] NOB + dating u/s; LMP 21MAR JACKIE THOMAS 08/03 Released w/o Limitations [place](Ob stetric s/Gynec ology) [place](Obst etrics/Gy necology) OUTPATIENT [id number] GDM class JACKIE THOMAS 08/10 Released w/o Limitations [place](Ob stetric s/Gynec ology) [place](Gyne cology) TELE CONSULT [id number] Pt called request ing for more STAN Cortez 08/15 [place](Gy necolog [place]) [place](Nutr ition) OUTPATIENT [id number] GDM REJI IRBY L 08/16 Released w/o Limitations [place](Nu trition ) [place](Obst etrics/Gy necology) OUTPATIENT [id number] cob/gdm JACKIE THOMAS 08/18 Released w/o Limitations [place](Ob stetric s/Gynec ology) [place](Obst etrics/Gy necology) OUTPATIENT [id number] cob/gdm JACKIE THOMAS 08/31 Released w/o Limitations [place](Ob stetric s/Gynec ology) [place](Obst etrics/Gy necology) TELE CONSULT [id number] BS concern s JACKIE THOMAS 09/01 [place](Ob stetric s/Gynec ology) [place](Obst etrics/Gy necology) OUTPATIENT [id number] cob/gdm fup JACKIE THOMSA 09/05 Released w/o Limitations [place](Ob stetric s/Gynec ology) [place](Obst etrics/Gy necology) OUTPATIENT [id number] cob/gdm JACKIE THOMAS 09/12 Released w/o Limitations [place](Ob stetric s/Gynec ology) [place](Obst etrics/Gy necology) OUTPATIENT [id number] JACKIE Naqvi 09/22 Released w/o Limitations [place](Ob stetric s/Gynec ology) [facility](Obst etrics/Gy necology) OUTPATIENT [id number] JACKIE Naqvi 10/05 Released w/o Limitations [place](Ob stetric s/Gynec ology) [facility](Obst etrics/Gy necology) OUTPATIENT [id number] cob/gdm JACKIE THOMAS 10/19 Released w/o Limitations [place](Ob stetric s/Gynec ology) [facility](Obst etrics/Gy necology) OUTPATIENT [id number] LENA Chandler 10/25 Released w/o Limitations [place](Ob stetric s/Gynec ology) [facility](Obst etrics/Gy necology) OUTPATIENT [id number] JACKIE Brumfield 11/02 Released w/o Limitations [facility](Ob stetric s/Gynec ology) [facility]) OUTPATIENT [id number] bump under eye lid BRANDI HOPPER 11/08 Released w/o Limitations [facility](An de Family Practic e) [facility]) TELE CONSULT [id number] Jack MONTIEL authori zation for MFM in [place] grant SHAKIR NOLAN 11/09 [facility](An de Family Practic e) [facility](Obst etrics/Gy necology) OUTPATIENT [id number] LENA Chandler 11/11 Released w/o Limitations [place](Ob stetric s/Gynec ology) [facility](Obst etrics/Gy necology) OUTPATIENT [id number] cob/LENA Quintero 11/18 Released w/o Limitations [place](Ob stetric s/Gynec ology) [facility](Obst etrics/Gy necology) OUTPATIENT [id number] basilia/LENA Quintero 11/23 Released w/o Limitations [place](Ob stetric s/Gynec ology) [facility](Obst etrics/Gy necology) OUTPATIENT [id number] cob/gdm JACKIE THOMAS 12/02 Released w/o Limitations [facility](Ob stetric s/Gynec ology) [facility] Team B) TELE CONSULT [id number] Notes Entered by: MIGUELANGEL AGUSTIN 20 Mar 2011 1224 ------- ------- ------- ------- -- Jl:(Ca pps)New control RX [phone] JORGE ALBRIGHT E 03/20 Referred for Appointment [facility](An de [facility] Team B) [facility] Team B) OUTPATIENT [id number] Discuss Control - pt breastf eeNOLAN Key 04/06 Released w/o Limitations [facility](An de [facility] Team B) [facility] TELE CONSULT [id number] Notes Entered by: MIGUELANGEL AGUSTIN 17 May 2011 0824 ------- ------- ------- ------- -- [facility]:(Ca pps) Lab order/b lood draw for WIC. [phone] JORGE ALBRIGHT E 05/15 Other Not Elsewhere Classified [facility](An de [facility] Team B) [facility] Team B) TELE CONSULT [id number] Notes Entered by: DIANE MCPHERSON 21 Jun 2011 1420 ------- ------- ------- ------- -- ES: (PCM Shakir) Milk Supply Concern s while breastf eeding [phone] JORGE ALBRIGHT E 06/20 Advice Assessment [facility](An de [facility] Team B) [facility] TELE CONSULT [id number] Notes Entered by: JAVIER MANNING E 02 Aug 2011 1812 ------- ------- ------- ------- -- Book an appt with JORGE Hernandez E 08/01 Referred for Appointment [facility](An de [facility] Team B) [facility] TELE CONSULT [id number] Notes Entered by: DIANE MCPHERSON 07 Aug 2011 0727 ------- ------- ------- ------- -- ES: (PCM Shakir) Referra l to [facility] at [place] Request [phone] JORGE ALBRIGHT E 08/05 Referred for Appointment [facility](An de [facility] Team B) [facility]) OUTPATIENT [id number] Tee DOMINGUEZ 08/06 Released w/o Limitations [facility]( de Optomet ry Clinic) [facility] OUTPATIENT [id number] Pt c/o breast infecti on w/ fever URSULA ROSSI 08/16 Released w/o Limitations [facility](An de [facility] Team A) [facility](Gyne cology) OUTPATIENT [id number] dyspare unia JACKIE Suresh 08/20 Released w/o Limitations [facility](Gy necolog y) [facility] OUTPATIENT [id number] f/u Thyroid BRANDI HOPPER 08/21 Released w/o Limitations [facility](An de [facility] Team B) [facility] Team B) TELE CONSULT [id number] Notes Entered by: JAVIER MANNING TT E 11 Dec 2011 1445 ------- ------- ------- ------- -- (Ramdat h) possibl e vaginal prolaps e, vaginal and bladder discomf ort 06/05 JORGE ALBRIGHT E 12/10 Immediate Referral [facility](An de [facility] Team B) [facility] TELE CONSULT [id number] Notes Entered by: Tee KIM 12 Dec 2011 0807 ------- ------- ------- ------- -- JNDK:(P CM Ramda ) pt wanting to be seen for vaginal prolaps e [phone] BRENDA BEGUM 12/10 [facility](An [facility] Team B) [facility](Gyne cology) OUTPATIENT [id number] 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 e per pt JACKIE THOMAS 12/26 Released w/o Limitations [facility](Gy necolog y) [facility] Team B) OUTPATIENT [id number] wrist pain BRENDA BEGUM 12/31 Released w/o Limitations [facility] Team B) [facility] Team B) TELE CONSULT [id number] Notes Entered by: JAZMINE GARCIA 05 Jan 2012 1501 ------- ------- ------- ------- -- GF:(PCM Ramda ) pt needs Mirena inserti on [phone] CHRISTIANA MUNOZ 01/04 Referred for Appointment [facility] Team B) [facility]) OUTPATIENT [id number] Mirena IUD [place] ing RUSS LUNDY 01/08 Released w/o Limitations [facility]) [facility] Team B) TELE CONSULT [id number] Notes Entered by: JAZMINE GARCIA 17 Jan 2012 0843 ------- ------- ------- ------- -- GF:(PCM Ramdath ) pt needs Mirena inserti on [phone] SABRINA QUINTANILLA 01/15 Referred for Appointment [facility] Team B) [facility]) OUTPATIENT [id number] IUD inserti on RUSS LUNDY 01/23 Released w/o Limitations [facility]) [facility] Team B) TELE CONSULT [id number] Notes Entered by: Tee KIMUARY N 05 Feb 2012 0945 ------- ------- ------- ------- -- JNDK:(P CM Ramdath ) pt c/o pain sx and numbnes s from Mirena [phone] SOCORROJA GALLEGOKLEBER Oliveira 02/03 [facility](An [facility] Team B) [facility]) OUTPATIENT [id number] string check RUSS LUNDY 03/07 Released w/o Limitations [facility]) [facility] Dermatolo gy) OUTPATIENT [id number] Macules And Papules TONE ANGELES 03/20 Released w/o Limitations [facility](An az Dermato logy) [facility] Team B) OUTPATIENT [id number] pt c/o lump on breast BRANDI HOPPER K 04/02 Released w/o Limitations [facility](An [facility] Team B) [facility] Team B) TELE CONSULT [id number] Notes Entered by: DIANE MCPHERSON 21 May 2012 0704 ------- ------- ------- ------- -- ES: (PCM Ramdath ) Bladder /kidney infecti on [phone] JORGE ALBRIGHT E 05/20 Advice Assessment [facility](An [facility] Team B) [facility] Team B) OUTPATIENT [id number] bladder pain RAMDASARAH GARCIARA 05/26 Released w/o Limitations [facility](An [facility] Team B) [facility]) OUTPATIENT [id number] pap RUSS LUNDY 07/24 Released w/o Limitations [facility]) [facility]) OUTPATIENT [id number] eye exam SHARON LEWIS 07/30 Released w/o Limitations [facility]) [facility] Team B) TELE CONSULT [id number] Notes Entered by: JAZMINE GARCIA 24 Sep 2012 1302 ------- ------- ------- ------- -- ([facility] Ramdath ) [place] sent to [place] by Miss Munoz for chest pain and tightne ss [phone] CHRISTIANA MUNOZ R 09/24 Referred- Emergency Department [facility] Team B) [facility] Team B) OUTPATIENT [id number] pt c/o asympto matic chest pain x 3 weeks RAMBRENDA MANNING 09/30 Released w/o Limitations [facility] Team B) [facility]) TELE CONSULT [id number] Notes Entered by: DIANE MCPHERSON 04 Dec 2012 0702 ------- ------- ------- ------- -- Ramdath : UTI sx since yesterd ay [phone] 10/02 WILBUR WATTERS 12/03 [facility]) [facility] Team A) OUTPATIENT [id number] asympto matic chest pain/li ght headed BRANDI HOPPER 04/27 Released w/o Limitations [facility] Team A) [facility] Team A) OUTPATIENT [id number] medicat ion refill BRANDI HOPPER 08/15 Released w/o Limitations [facility] Team A) [facility]) OUTPATIENT [id number] oversea s clearan ce screeni MIGDALIA Mayer 08/20 Released w/o Limitations [facility]) [facility]) OUTPATIENT [id number] Notes Entered by: MARITA RAUSCH 22 Aug 2013 1521 ------- ------- ------- ------- -- [place] Screen[place] SHALOM, MARITA E 08/22 Released w/o Limitations [facility] EF- Clinic) [facility] Team A) OUTPATIENT [id number] Medicat ion Request BRANDI HOPPER 10/16 Released w/o Limitations [facility] Team A) [facility] Team A) TELE CONSULT [id number] Notes Entered by: CUCO LOAIZA 22 Oct 2013 0955 ------- ------- ------- ------- -- Peterson : vertigo and anxious feeling with chest pain: [phone] DAWIT BOONE 10/21 Released to Self Care [facility] Team A) [facility] Element C-1) OUTPATIENT [id number] shoulde rs px for 2wks ALEK PULIDO 12/10 Released w/o Limitations [facility] Element C-1) [facility](L Ophthalmo logy) OUTPATIENT [id number] STRABIS MUS - RIGHT EYE GONZÁLEZ DONNELLY 12/18 Released w/o Limitations [facility] Ophthal mology) [facility] Element C-1) OUTPATIENT [id number] nerve pain in arm/leobardo y painful ALEK PULIDO 01/02 Released w/o Limitations [facility] Element C-1) [facility] Element C-1) TELE CONSULT [id number] Notes Entered by: ALEK ROMO 07 Jan 2014 1338 ------- ------- ------- ------- -- Xray results ALEK PULIDO 01/07 [facility] Element C-1) [facility]N [facility] Element C-1) TELE CONSULT [id number] Notes Entered by: ALEK ROMO 14 Jan 2014 1453 ------- ------- ------- ------- -- Micare message not read BENJIGLEN Tee 01/14 [facility] Element C-1) [facility](L Ophthalmo logy) TELE CONSULT [id number] Notes Entered by: MACI MONTES RD 19 Mar 2014 1423 ------- ------- ------- ------- -- Surgery cancell ation - in family GONZÁLEZ DONNELLY 03/19 [facility](L Ophthal mology) [facility](N C Element C-1) OUTPATIENT [id number] STOMACH PAIN X 3 WEEKS AND DIARRHE A/ PCM CARMEN R/ NO EST AVAIL WITHIN RNGE MANJINDER SOLIS 03/24 [facility] Limitations [facility] Element C-1) OUTPATIENT [id number] stomach px 2 days MANJINDER SOLIS 04/21 [facility]ased w/o Limitations [facility] C Element C-1) TELE CONSULT [id number] Notes Entered by: Maddy MONTE 12 Jun 2014 1044 ------- ------- ------- ------- -- Referra l Request ALEK PULIDO 06/12 [facility] Element C-1) [facility] Element C-1) OUTPATIENT [id number] referra l to Urology needed/ new pt/blad leeroy problem s ALEK PULIDO 06/24 Released w/o Limitations [facility] Element C-1) [facility](L Urology) OUTPATIENT [id number] CYSTITI S CHRONIC INTERST ITIAL TOUSSAINT, VENITA M 07/08 Released w/o Limitations [facility] Urology ) [facility]) TELE CONSULT [id number] Notes Entered by: Maddy PEREZ 09 Jul 2014 1046 ------- ------- ------- ------- -- pt was told to get records in [place] , but they have been destroy ed after 7 year NICKY LOWE 07/09 [facility] Urology ) [facility]) TELE CONSULT [id number] Notes Entered by: PINA ORTEGA 15 Jul 2014 1437 ------- ------- ------- ------- -- can not get records from [facility] VENITA Malave 07/15 [facility] Urology ) [facility] Investigative Analyst) OUTPATIENT [id number] WELL/PA P JULIUS VAZQUEZ 09/15 Released w/o Limitations [facility] Investigative Analyst) [facility] Urology) OUTPATIENT [id number] cysto/ pa michelle pt LONDON WARD 10/26 Released w/o Limitations [facility] Urology ) [facility] Investigative Analyst) OUTPATIENT [id number] vaginal disc/od or; patient worried JULIUS VAZQUEZ L 11/16 Released w/o Limitations [facility] Investigative Analyst) [facility] Element C-1) OUTPATIENT [id number] L ear problem s MYRTLE HARMAN 01/12 Released w/o Limitations [facility] Element C-1) [facility] Audiology , Bld[address] 6685) OUTPATIENT [id number] spec [id number] JOAQUÍN DESAI 01/15 Released w/o Limitations [facility](L Audiolo gy, Bldg 3766) [facility] Element C-1) TELE CONSULT [id number] MYRTLE HARMAN Rudy 01/20 [facility] Element C-1) [facility] ENT Clinic) OUTPATIENT [id number] Conduct marah hearing loss, bilater al ANN RODRIGUEZ O 01/26 Released w/o Limitations [facility](L ENT Clinic) [facility] Physical Therapy) OUTPATIENT [id number] Thierryica DEEPTI Max 02/12 Released w/o Limitations [facility] Physica l Therapy ) [facility] Emergency Room) OUTPATIENT [id number] Notes Entered by: DAVONTE CHANDLER 02 Jul 2015 2211 ------- ------- ------- ------- -- 35yo F Abdomin al Pain ENTKENISHA FALCON 07/01 Released w/o Limitations [facility](L Emergen cy Room) [facility] Element B-1) OUTPATIENT [id number] f/u for interst itial cystiti s ANDREA MCMAHON M 07/04 Released w/o Limitations [facility] Element B-1) [facility](N Optometry ) OUTPATIENT [id number] routine eye exam/gl assGREYSON Villa 09/19 Released w/o Limitations [facility] Optomet ry) [facility] Element B-1) OUTPATIENT [id number] Shoulde r pain/un able to lift arms ANDREA MCMAHON M 10/27 Released w/o Limitations [facility] Element B-1) [facility](N Optometry ) OUTPATIENT [id number] Contact lens f/u GREYSON GERONIMO 11/23 Released w/o Limitations [facility] Optomet ry) [facility] Optometry ) OUTPATIENT [id number] CL Check GREYSON GERONIMO 11/28 Released w/o Limitations [facility] Optomet ry) [facility] Audiology , [facility] 3766) OUTPATIENT [id number] 6 MONTH F/U HEARING TEST JOAQUÍN DESAI 11/29 Released w/o Limitations [facility] Audiolo gy, Bldg 3766) [facility] ENT Clinic) OUTPATIENT [id number] Dr. Rodriguez pt; f/u on Audio results -sched 6 KEN LOTT 11/29 Released w/o Limitations [facility] ENT Clinic) [facility] Element B-1) OUTPATIENT [id number] bilat d/c from nipples /insist s on appt/HC G testing /home test neg ANTHONY ÁLVAREZ 02/28 Released w/o Limitations [facility] Element B-1) [facility] Element C-1) TELE CONSULT [id number] Notes Entered by: SHIRA MOORE 08 Mar 2016 1344 ------- ------- ------- ------- -- Network Results Physica l Therapy 6 ANDREA MCMAHON 03/08 [facility] Element C-1) [facility] Investigative Analyst) OUTPATIENT [id number] IUD Removal Consult RENEE Lawrence 03/24 Released w/o Limitations [facility] Investigative Analyst) [facility] Element B-1) TELE CONSULT [id number] Notes Entered by: ERON GREGG 29 Mar 2016 0817 ------- ------- ------- ------- -- Cold Sx MARTELL RENETTA K 03/29 [facility] Element B-1) [facility] Element B-1) OUTPATIENT [id number] Severe sinus pain and congest ion/sor e throat/ no fevers ANDREA MCMAHON 03/29 Released w/o Limitations [facility] Investigative Analyst) OUTPATIENT [id number] [facility] 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 SYLWIA MCFADDEN 04/25 Released w/o Limitations [facility] Investigative Analyst) [facility] Element B-1) TELE CONSULT [id number] Notes Entered by: SAMEERA JARRETT I 15 May 2016 1340 ------- ------- ------- ------- -- Advise request KETAN Nolasco 05/15 [facility] Element B-1) [facility] Element B-1) OUTPATIENT [id number] issues with poss vertigo /dizzin ess GERRI RODRIGUEZ 05/16 Released w/o Limitations [facility] Element B-1) [facility] Element B-1) OUTPATIENT [id number] l pelvic area px JUDY CHASE 10/09 Released w/o Limitations [facility] Element B-1) [facility] Emergency Room) OUTPATIENT [id number] Notes Entered by: ISATU LARA 09 Oct 2016 1535 ------- ------- ------- ------- -- 36y/o F LLQ px ELENA MERCER 10/09 Released w/o Limitations [facility] Emergen cy Room) [facility] Emergency Room) OUTPATIENT [id number] Notes Entered by: Maddy HAMILTON 23 Oct 2016 1859 ------- ------- ------- ------- -- 36 y/o f Epigast candido pain TIKA KEEGAN ROEL 10/23 Released w/o Limitations [facility](L Emergen cy Room) [facility] Element B-1) OUTPATIENT [id number] poonam breast /rib pain er f/u SALVATORE JUDY K 10/25 Released w/o Limitations [facility] Element B-1) [facility] OUTPATIENT [id number] Lower abdomin al pain, unspeci fied TIFFANY TSE 11/07 Released w/o Limitations [facility] Investigative Analyst) [facility] Element B-1) TELE CONSULT [id number] Notes Entered by: MARIELY BABCOCK 06 Dec 2016 1253 ------- ------- ------- ------- -- Jennifer jose and MILKA Killian 12/06 [facility] Element B-1) [facility] Occupatio nal Health) OUTPATIENT [id number] Notes Entered by: CARLEE NELSON 21 Dec 2016 1913 ------- ------- ------- ------- -- flu shot PAOLA ELIZABETH 12/21 Released w/o Limitations [facility] Occupat ional Health) [facility] Investigative Analy[facility]) OUTPATIENT [id number] IUD Inserti on/PT is request ing copper IUD/Con sultati on done TIFFANY TSE 12/22 [facility]ased w/o Limitations [facility]) [facility] Investigative Analyst) OUTPATIENT [id number] TIFFANY Clark 01/30 Released w/o Limitations [facility] Investigative Analyst) [facility] Investigative Analyst) TELE CONSULT [id number] Notes Entered by: KARLA TSE 31 Jan 2017 0929 ------- ------- ------- ------- -- Result Shavonic maci MCKEON GERARDO L 01/31 [facility] Investigative Analyst) [facility] Element B-1) TELE CONSULT [id number] Notes Entered by: SADA PERDOMO 06 Feb 2017 1339 ------- ------- ------- ------- -- Consult Closed/ Not Utilize d MILKA NAVARRETE 02/06 [facility] Element B-1) [facility] Emergency Room) OUTPATIENT [id number] Notes Entered by: Maddy HAMILTON 13 Mar 2017 0802 ------- ------- ------- ------- -- 37 y/o F bloody urine DEIDRE MORA 03/13 Released w/o Limitations [facility] Emergen cy Room) [facility] Element B-1) OUTPATIENT [id number] annual PE/cell [id number] ANDREA MCMAHON 04/18 Released w/o Limitations [facility] Element B-1) [facility] Element B-1) TELE CONSULT [id number] Notes Entered by: Stuart MCMAHON 26 Apr 2017 1858 ------- ------- ------- ------- -- ANDREA Pelayo 04/26 [facility](N [facility] Element B-1) [facility] Element B-1) TELE CONSULT [id number] Notes Entered by: GUILLE CHAN 03 May 2017 1048 ------- ------- ------- ------- -- KEN Hinson 05/03 [facility](N [facility] Element B-1) [facility] Element B-1) TELE CONSULT [id number] Notes Entered by: Cesar NGO 31 May 2017 0742 ------- ------- ------- ------- -- FYI Patient NO SHOW [place] NGO 05/31 [facility] Element B-1) [facility] Physical Therapy) [facility] [id number] [facility]ina t[facility] INDIRA ROSA T 06/26 Released w/o Limitations [facility] Physica l Therapy ) [facility] Physical Therapy) OUTPATIENT [id number] (B)Shld /Neck INDIRA ROSA T 06/27 Released w/o Limitations [facility] Physica l Therapy ) [facility] Physical Therapy) OUTPATIENT [id number] [facility] ROS[facility] T 07/02 Released w/o Limitations [facility] Physica l Therapy ) [facility] Physical Therapy) OUTPATIENT [id number] [facility] T 07/09 Released w/o Limitations [facility] Physica l Therapy ) [facility] Emergency Room) OUTPATIENT [id number] Notes Entered by: THOMPSON SPARKS 28 Jul 20172031 ------- ------- ------- ------- -- 37 y/o F DANIELA Mcdonald 07/28 Released w/o Limitations [facility] Emergen cy Room) [facility] Element B-1) TELE CONSULT [id number] Notes Entered by: GUILLE CHAN 01 Aug 2017 1010 ------- ------- ------- ------- -- UTI Labs from RUSLAN SHERMAN 08/01 [facility] Element B[facility]) [facility] Element [facility]) TELE CONSULT [id number] Notes Entered by: JOSEPH RUIZ 24 Sep 2017 1057 ------- ------- ------- ------- -- Prescri ption for motion sicknes rudy NEAL TONE P 09/24 [facility] Element B-[facility]) [facility] Element [facility]) OUTPATIENT [id number] Notes Entered by: MANNY ALVAREZ ED 19 Nov 2017 1323 ------- ------- ------- ------- -- walk in [place] [facility] [place]ased w/o Limitations [facility] Element B-[facility]) [facility](RSN C Element B-1) OUTPATIENT [id number] pain while urinati ng/bump s in vaginal [id number] SHELDON SHARMA 12/04 Released w/o Limitations [facility] Element B-1) [facility](RSN C Element B-1) TELE CONSULT [id number] Notes Entered by: GUILLE CHAN 12 Dec 2017 0826 ------- ------- ------- ------- -- LABS SHELDON SHARMA 12/12 [facility] Element B-1) [facility]) OUTPATIENT [id number] Notes Entered by: LISA LONDON 25 Dec 2017 1620 ------- ------- ------- ------- -- FLU SHOT ELIZABETHPAOLA LEONARD Brandan 12/25 Released w/o Limitations [facility]) [facility] Investigative Analyst) OUTPATIENT [id number] Other skin changes SYLWIA MCFADDEN N 01/01 Released w/o Limitations [facility]) [facility] F[facility]B [facility]) TELE CONSULT [id number] Notes Entered by: KB MARTINEZ N 16 Jan 2018 1611 ------- ------- ------- ------- -- lab results SYLWIA MCFADDEN N 01/16 [facility] F[facility]) [facility] Element B-1) TELE CONSULT [id number] Notes Entered by: SARAH KWAN 29 Jan 2018 1022 ------- ------- ------- ------- -- Prescri ptDEEPTI Mejia 01/29 [facility] Element B-1) [facility]) TELE CONSULT [id number] Notes Entered by: Brandan MACIAS 06 Feb 2018 1233 ------- ------- ------- ------- -- lab result CHIVO MACIAS 02/06 [facility]st) [facility]) TELE CONSULT [id number] Notes Entered by: Muna LOWE 25 Apr 2018 1054 ------- ------- ------- ------- -- Acute appt request JUHI ORTIZ 04/25 [employer] [employer]([facility]) TELE CONSULT [id number] Notes Entered by: Muna LOWE 31 May 2018 1139 ------- ------- ------- ------- -- ReferAMANDA Juárez 05/31 [employer]([facility]) [employer] [address] TELE CONSULT [id number] Notes Entered by: AMANDA JOHNSON 05 Jun 2018 0706 ------- ------- ------- ------- -- AMANDA MITCHELL 06/05 [employer]( [facility]) [employer]([facility]) TELE CONSULT [id number] Notes Entered by: ANNIE PERERA 10 Jun 2018 1021 ------- ------- ------- ------- -- Network Results - Family Practic e- dos 06/04/18 JUHI ORTIZ 06/10 [employer]([facility]) [facility] [facility] OUTPATIENT [id number] Encount er for other adminis trative examOSMANY Guy [facility] 06/13 Released w/o Limitations [employer] [facility]) [employer]([facility]) TELE CONSULT [id number] Notes Entered by: Stuart CARRILLO 02 Jul 2018 1007 ------- ------- ------- ------- -- Referra wayne to 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 AMANDA Arevalo 07/02 [employer] [employer]([facility]) TELE CONSULT [id number] Notes Entered by: MARIA ELENA GASTELUM 02 Jul 2018 1319 ------- ------- ------- ------- -- AMANDA MARSHALL 07/02 [employer]([facility]) [employer] [facility] OUTPATIENT [id number] patch test placeme nt [facility] 07/08 Released w/o Limitations [employer] [facility] OUTPATIENT [id number] patch test removal [facility] 07/10 Released w/o Limitations [facility] [facility] OUTPATIENT [id number] patch test reading [facility] 07/12 Released w/o Limitations [employer] [facility]) [employer]([facility]) TELE CONSULT [id number] Notes Entered by: PIOTR MALDONADO 16 Jul 2018 1511 ------- ------- ------- ------- -- AMANDA Mitchell 07/16 [employer]([facility]) [employer]([facility] [address]) TELE CONSULT [id number] Notes Entered by: AMANDA JOHNSON 17 Jul 2018 1131 ------- ------- ------- ------- -- JUHI LANDEROS 07/17 [employer]([facility]) [employer]) OUTPATIENT [id number] PST/ELSIE LT [facility] 07/26 Released w/o Limitations [employer]) [employer]([facility] [address]) TELE CONSULT [id number] Notes Entered by: AMANDA JOHNSON 31 Jul 2018 1238 ------- ------- ------- ------- -- REFERAMANDA DORSEY 07/31 [employer]([facility]) [employer]([facility]) TELE CONSULT [id number] Notes Entered by: Stuart CARRILLO 31 Jul 2018 1229 ------- ------- ------- ------- -- Refer l to Orthope dics request AMANDA SHOOK 07/31 [employer]([facility]) [employer] [facility]) OUTPATIENT [id number] NO SAM PST/ELSIE LT OSMANY CARDOZO [facility] 08/09 Released w/o Limitations [employer]) [employer]([facility]) OUTPATIENT [id number] referra l to orthope MIGUELANGEL Mcmillan 08/12 Released w/o Limitations [employer]([facility]) [employer]) TELE CONSULT [id number] Notes Entered by: MIGUELANGEL PÉREZ 16 Aug 2018 1551 ------- ------- ------- ------- -- Lab and Imaging results LINO JOEL 08/16 Other Not Elsewhere Classified [employer]([facility]) [employer]([facility]) TELE CONSULT [id number] Notes Entered by: MIGUELANGEL PÉREZ 20 Aug 2018 0935 ------- ------- ------- ------- -- Lab results AMANDA SHOOK 08/20 [employer]([facility]) [employer]([facility]) TELE CONSULT [id number] Notes Entered by: MIGUELANGEL PÉREZ 23 Aug 2018 1257 ------- ------- ------- ------- -- Lab Results MIGUELANGEL PÉREZ 08/23 [employer]([facility]) [employer]([facility] [address]) TELE CONSULT [id number] Notes Entered by: RUBINA JAMESON 27 Aug 2018 1126 ------- ------- ------- ------- -- Network results Ophthal mology 019. JUHI ORTIZ 08/27 [employer]([facility] [employer]) [employer]([facility]) OUTPATIENT [id number] Encount er for other adminis trative examina JAMES Montanez 08/28 Released w/o Limitations [employer]([facility]) [employer]([facility]) TELE CONSULT [id number] Notes Entered by: RUBINA JAMESON 04 Sep 2018 0846 ------- ------- ------- ------- -- Network results Physica l Therapy 019. MIGUELANGEL PÉREZ 09/04 [employer]([facility]) [employer]([facility]) OUTPATIENT [id number] left knee pain, right foot pain CESAR ELIZABETH 09/05 Released w/o Limitations [employer]([facility]) [employer]([facility]) OUTPATIENT [id number] patient request s ER follow up for upper abdomin al pain MIGUELANGEL PÉREZ 11/12 Released w/o Limitations [employer] [employer]) TELE CONSULT [id number] Notes Entered by: MIGUELANGEL PÉREZ 21 Nov 2018 1607 ------- ------- ------- ------- -- Lab Results WALE MORA 11/21 Other Not Elsewhere Classified [employer]([facility]) [employer]([facility]) OUTPATIENT [id number] Review Lab Results MIGUELANGEL PÉREZ 11/21 Released w/o Limitations [employer]([facility]) [employer]([place] [address]) OUTPATIENT [id number] Abnorma l levels of other serum enzymes ARNOLDO GONZALEZ 11/25 Released w/o Limitations [employer]([place] [address]) [employer]([facility]) OUTPATIENT [id number] ER follow up from lower back and right side pain JAZZMINE BURCIAGA 12/17 Released w/o Limitations [employer]([facility]) [employer]([place] [address]) TELE CONSULT [id number] Notes Entered by: ZARI GONZALEZ 20 Dec 2018 1543 ------- ------- ------- ------- -- MRI results ARNOLDO GONZALEZ 12/20 [employer]([place] [address]) [employer]([facility]) TELE CONSULT [id number] 4 Notes Entered by: JAZZMINE BURCIAGA 10 Jan 2019 1600 ------- ------- ------- ------- -- VIRT f/u anemia LADAN SERRANO 01/10 [employer]([facility]) [employer]([facility]) TELE CONSULT [id number] Notes Entered by: BETZY JOHNSON 16 Jan 2019 1039 ------- ------- ------- ------- -- Network Results LADAN SERRANO 01/16 [employer]([facility]) [employer]([facility]) OUTPATIENT [id number] virtual appt to discuss labs JAZZMINE BURCIAGA 01/17 Released w/o Limitations [employer]([facility]) [employer]([place] [address]) OUTPATIENT [id number] raised antibod y titer ARNOLDO GONZALEZ 05/01 Released w/o Limitations [employer]([place] [address]) [facility] [address] TELE CONSULT [id number] Notes Entered by: Rudy MENDEZ 13 Oct 2019 1119 ------- ------- ------- ------- -- low vitamin D ARNOLDO GONZALEZ 10/12 [facility] [address]) [facility]([place] [address]) OUTPATIENT [id number] F/U Raised Antibod y ARNOLDO GONZALEZ 10/28 Released w/o Limitations [employer]([place] [address]) [facility]([place] [address]) TELE CONSULT [id number] 2 Notes Entered by: uRdy MENDEZ 03 Nov 2020 0927 ------- ------- ------- ------- -- repeat lab work ARNOLDO GONZALEZ 11/03 [facility]([place] [address]) [facility]([place] [address]) TELE CONSULT [id number] Notes Entered by: ZARI GONZALEZ 10 Nov 2020 0816 ------- ------- ------- ------- -- low complem ent ARNOLDO GONZALEZ 11/10 [facility]([place] [address]) [facility]([place] [address]) OUTPATIENT [id number] elevate d antibod y f/u ARNOLDO GONZALEZ 11/19 Released w/o Limitations [employer]([place] [address]) [facility]([place] [address]) TELE CONSULT [id number] Notes Entered by: SASHA GARDNER 08 Dec 2020 1204 ------- ------- ------- ------- -- Lab Results ARNOLDO GONZALEZ 12/08 [facility] 0073) Procedures Combined list of: 1) Procedures from Department of Veterans Affairs facilities going back up to thelast 18 months, not all VA non-surgical procedures are included; 2) All procedures from the Department of Defense facilities. Procedure Procedure Type Code Date Perfomer Comments Sourc e No data available for this section [facility] TELE ASSESS & MGT SRV PROV QUAL NONPHYS HLTH CARE PRO TO EST PAT,PARENT,GUARD NOT ORIG REL ASSESS & MGT SRV PROV W/IN PREV 7 DAYS NOR LEAD ASSESS & MGT SRV/PX W/IN NXT 24 HR/SOON APT;5-10 MIN MED DIS 11/03 DoD WAIVER SERVICES; NOT OTHERWISE SPECIFIED (NOS) 10/28 DoD TELE ASSESS & MGT SRV PROV QUAL NONPHYS HLTH CARE PRO TO EST PAT,PARENT,GUARD NOT ORIG REL ASSESS & MGT SRV PROV W/IN PREV 7 DAYS NOR LEAD ASSESS & MGT SRV/PX W/IN NXT 24 HR/SOON APT;5-10 MIN MED DIS 10/12 DoD ONLINE ASSESS &MANAG SERV PROVIDE,A QUAL NONPHYS HCP TO AN ESTABLISHED PAT/GUARDIAN,NOT ORIGINAT FRM RELAT ASSESS &MANAG SERV PROVIDE W/IN THE PREV 7 DAYS,USE THE INTERNET/SIMILAR [employer] 01/20 DoD TELE ASSESS & MGT SRV PROV QUAL NONPHYS HLTH CARE PRO TO EST PAT,PARENT,GUARD NOT ORIG REL ASSESS & MGT SRV PROV W/IN PREV 7 DAYS NOR LEAD ASSESS & MGT SRV/PX W/IN NXT 24 HR/SOON APT;5-10 MIN MED DIS 01/10 DoD TELE ASSESS & MGT SRV PROV QUAL NONPHYS HLTH CARE PRO TO EST PAT,PARENT,GUARD NOT ORIG REL ASSESS & MGT SRV PROV W/IN PREV 7 DAYS NOR LEAD ASSESS & MGT SRV/PX W/IN NXT 24 HR/SOON APT;5-10 MIN MED DIS 12/20 DoD INJECTION, ONDANSETRON HCL, PER 1 MG 12/12 DoD TELE ASSESS & MGT SRV PROV QUAL NONPHYS HLTH CARE PRO TO EST PAT,PARENT,GUARD NOT ORIG REL ASSESS & MGT SRV PROV W/IN PREV 7 DAYS NOR LEAD ASSESS & MGT SRV/PX W/IN NXT 24 HR/SOON APT;5-10 MIN MED DIS 11/21 DoD INTRAVENOUS INFUSION, HYDRATION; EACH ADDITIONAL HOUR (LIST SEPARATELY IN ADDITION TO CODE FOR PRIMARY PROCEDURE) 10/27 DoD TELE ASSESS & MGT SRV PROV QUAL NONPHYS HLTH CARE PRO TO EST PAT,PARENT,GUARD NOT ORIG REL ASSESS & MGT SRV PROV W/IN PREV 7 DAYS NOR LEAD ASSESS & MGT SRV/PX W/IN NXT 24 HR/SOON APT;5-10 MIN MED DIS 08/20 DoD TELE ASSESS & MGT SRV PROV QUAL NONPHYS HLTH CARE PRO TO EST PAT,PARENT,GUARD NOT ORIG REL ASSESS & MGT SRV PROV W/IN PREV 7 DAYS NOR LEAD ASSESS & MGT SRV/PX W/IN NXT 24 HR/SOON APT;5-10 MIN MED DIS 08/16 DoD PERCUTANEOUS TESTS (SCRATCH, PUNCTURE, PRICK) WITH ALLERGENIC EXTRACTS, IMMEDIATE TYPE REACTION, INCLUDING TEST INTERPRETATION AND REPORT, SPECIFY NUMBER OF TESTS 08/09 DoD TELE ASSESS & MGT SRV PROV QUAL NONPHYS HLTH CARE PRO TO EST PAT,PARENT,GUARD NOT ORIG REL ASSESS & MGT SRV PROV W/IN PREV 7 DAYS NOR LEAD ASSESS & MGT SRV/PX W/IN NXT 24 HR/SOON APT;5-10 MIN MED DIS 07/31 DoD TELE ASSESS & MGT SRV PROV QUAL NONPHYS HLTH CARE PRO TO EST PAT,PARENT,GUARD NOT ORIG REL ASSESS & MGT SRV PROV W/IN PREV 7 DAYS NOR LEAD ASSESS & MGT SRV/PX W/IN NXT 24 HR/SOON APT;5-10 MIN MED DIS 07/17 DoD TELE ASSESS & MGT SRV PROV QUAL NONPHYS HLTH CARE PRO TO EST PAT,PARENT,GUARD NOT ORIG REL ASSESS & MGT SRV PROV W/IN PREV 7 DAYS NOR LEAD ASSESS & MGT SRV/PX W/IN NXT 24 HR/SOON APT;5-10 MIN MED DIS 07/16 DoD PATCH OR APPLICATION TEST(S) (SPECIFY NUMBER OF TESTS) 07/12 DoD PATCH OR APPLICATION TEST(S) (SPECIFY NUMBER OF TESTS) 07/10 DoD PATCH OR APPLICATION TEST(S) (SPECIFY NUMBER OF TESTS) 07/08 DoD TELE ASSESS & MGT SRV PROV QUAL NONPHYS HLTH CARE PRO TO EST PAT,PARENT,GUARD NOT ORIG REL ASSESS & MGT SRV PROV W/IN PREV 7 DAYS NOR LEAD ASSESS & MGT SRV/PX W/IN NXT 24 HR/SOON APT;5-10 MIN MED DIS 07/02 DoD TELE ASSESS & MGT SRV PROV QUAL NONPHYS HLTH CARE PRO TO EST PAT,PARENT,GUARD NOT ORIG REL ASSESS & MGT SRV PROV W/IN PREV 7 DAYS NOR LEAD ASSESS & MGT SRV/PX W/IN NXT 24 HR/SOON APT;5-10 MIN MED DIS 06/05 DoD TELE ASSESS & MGT SRV PROV QUAL NONPHYS HLTH CARE PRO TO EST PAT,PARENT,GUARD NOT ORIG REL ASSESS & MGT SRV PROV W/IN PREV 7 DAYS NOR LEAD ASSESS & MGT SRV/PX W/IN NXT 24 HR/SOON APT;5-10 MIN MED DIS 05/31 DoD TELE ASSESS & MGT SRV PROV QUAL NONPHYS HLTH CARE PRO TO EST PAT,PARENT,GUARD NOT ORIG REL ASSESS & MGT SRV PROV W/IN PREV 7 DAYS NOR LEAD ASSESS & MGT SRV/PX W/IN NXT 24 HR/SOON APT;5-10 MIN MED DIS 04/25 DoD IMMUNIZATION ADMINISTRATION (INCLUDES PERCUTANEOUS, INTRADERMAL, SUBCUTANEOUS, OR INTRAMUSCULAR INJECTIONS); 1 VACCINE (SINGLE OR COMBINATION VACCINE/TOXOID) 12/25 DoD PHYSICAL OR MANIPULATIVE THERAPY PERFORMED FOR MAINTENANCE RATHER THAN ANABAPTISM 07/09 DoD PHYSICAL OR MANIPULATIVE THERAPY PERFORMED FOR MAINTENANCE RATHER THAN ANABAPTISM 07/02 DoD PHYSICAL OR MANIPULATIVE THERAPY PERFORMED FOR MAINTENANCE RATHER THAN ANABAPTISM 06/27 DoD PHYSICAL OR MANIPULATIVE THERAPY PERFORMED FOR MAINTENANCE RATHER THAN ANABAPTISM 06/26 DoD INSERTION OF INTRAUTERINE DEVICE (IUD) 12/22 DoD IMMUNIZATION ADMINISTRATION (INCLUDES PERCUTANEOUS, INTRADERMAL, SUBCUTANEOUS, OR INTRAMUSCULAR INJECTIONS); 1 VACCINE (SINGLE OR COMBINATION VACCINE/TOXOID) 12/21 DoD SCREENING PAPANICOLAOU SMEAR; OBTAINING, PREPARING AND CONVEYANCE OF CERVICAL OR VAGINAL SMEAR TO LABORATORY 11/07 [facility] COLLECTION OF VENOUS BLOOD BY VENIPUNCTURE 10/23 [facility] INTRODUCTION OF NEEDLE OR INTRACATHETER, VEIN 10/09 [facility] DISTORTION PRODUCT EVOKED OTOACOUSTIC EMISSIONS;COMPREHENSIV E DIAG EVALUATION (QUANTITATIVE ANALYSIS OF OUTER HAIR CELL FUNCTION,COCHLEAR MAPPING,MINIMUM OF 12 FREQUENCIES),W INTERPRETATION &REPORT 11/29 [facility] OPHTHALMOLOGICAL SERVICES: MEDICAL EXAMINATION AND EVALUATION, WITH INITIATION OR CONTINUATION OF DIAGNOSTIC AND TREATMENT PROGRAM; INTERMEDIATE, ESTABLISHED PATIENT 11/28 [facility] PRESCRIPTION OF OPTICAL AND PHYSICAL CHARACTERISTICS OF AND FITTING OF CONTACT LENS, WITH MEDICAL SUPERVISION OF ADAPTATION; CORNEAL LENS, BOTH EYES, EXCEPT FOR APHAKIA 11/23 [facility] DETERMINATION OF REFRACTIVE STATE 09/19 [facility] PHYSICAL OR MANIPULATIVE THERAPY PERFORMED FOR MAINTENANCE RATHER THAN ANABAPTISM 02/12 [facility] BINOCULAR MICROSCOPY (SEPARATE DIAGNOSTIC PROCEDURE) 01/26 [facility] TYMPANOMETRY AND REFLEX THRESHOLD MEASUREMENTS 01/15 [facility] WET TAL, INCLUDING PREPARATIONS OF VAGINAL, CERVICAL OR SKIN SPECIMENS 11/16 [facility] URINALYSIS, BY DIP STICK OR TABLET REAGENT FOR BILIRUBIN, GLUCOSE, HEMOGLOBIN, KETONES, LEUKOCYTES, NITRITE, PH, PROTEIN, SPEC GRAVITY, UROBILINOGEN, ANY NUMBER OF CONSTITUENTS; W/O MICRO, AUTOMATED 10/26 [facility] URINALYSIS, BY DIP STICK OR TABLET REAGENT FOR BILIRUBIN, GLUCOSE, HEMOGLOBIN, KETONES, LEUKOCYTES, NITRITE, PH, PROTEIN, SPEC GRAVITY, UROBILINOGEN, ANY NUMBER OF CONSTITUENTS; W/O MICRO, AUTOMATED 07/08 [facility] EXTERNAL OCULAR PHOTOGRAPHY WITH INTERPRETATION AND REPORT FOR DOCUMENTATION OF MEDICAL PROGRESS (EG, CLOSE-UP PHOTOGRAPHY, SLIT LAMP PHOTOGRAPHY, GONIOPHOTOGRAPHY, STEREO-PHOTOGRAPHY) 12/18 [facility] TELE ASSESS & MGT SRV PROV QUAL NONPHYS HLTH CARE PRO TO EST PAT,PARENT,GUARD NOT ORIG REL ASSESS & MGT SRV PROV W/IN PREV 7 DAYS NOR LEAD ASSESS & MGT SRV/PX W/IN NXT 24 HR/SOON APT;5-10 MIN MED DIS 10/22 DoD HEALTH&BEHAV ASSESSMENT (EG, HEALTH-FOC CLINICAL INTERVIEW, BEHAVIORAL OBSERVATIONS, PSYCHOPHYSICOLOGICAL MONITOR, HEALTH-ORIENT QUESTIONNAIRES), EA 15 MIN [id number] W THE PATIENT; INIT ASSESSMENT 08/22 DoD HEALTH&BEHAV ASSESSMENT (EG, HEALTH-FOC CLINICAL INTERVIEW, BEHAVIORAL OBSERVATIONS, PSYCHOPHYSICOLOGICAL MONITOR, HEALTH-ORIENT QUESTIONNAIRES), EA 15 MIN [id number] W THE PATIENT; INIT ASSESSMENT 08/21 [facility] TELE ASSESS & MGT SRV PROV QUAL NONPHYS HLTH CARE PRO TO EST PAT,PARENT,GUARD NOT ORIG REL ASSESS & MGT SRV PROV W/IN PREV 7 DAYS NOR LEAD ASSESS & MGT SRV/PX W/IN NXT 24 HR/SOON APT;5-10 MIN MED DIS 09/24 DoD DETERMINATION OF REFRACTIVE STATE 07/31 DoD SCREENING PAPANICOLAOU SMEAR; OBTAINING, PREPARING AND CONVEYANCE OF CERVICAL OR VAGINAL SMEAR TO LABORATORY 07/24 DoD TELE ASSESS & MGT SRV PROV QUAL NONPHYS HLTH CARE PRO TO EST PAT,PARENT,GUARD NOT ORIG REL ASSESS & MGT SRV PROV W/IN PREV 7 DAYS NOR LEAD ASSESS & MGT SRV/PX W/IN NXT 24H/SOON APT; 11-20 MIN MED DIS 05/21 DoD TELE ASSESS & MGT SRV PROV QUAL NONPHYS HLTH CARE PRO TO EST PAT,PARENT,GUARD NOT ORIG REL ASSESS & MGT SRV PROV W/IN PREV 7 DAYS NOR LEAD ASSESS & MGT SRV/PX W/IN NXT 24 HR/SOON APT;5-10 MIN MED DIS 02/04 DoD CONTRACEPTIVE INTRAUTERINE DEVICE (E.G., PROGESTACERT IUD), INCLUDING IMPLANTS AND SUPPLIES 01/23 DoD TELE ASSESS & MGT SRV PROV QUAL NONPHYS HLTH CARE PRO TO EST PAT,PARENT,GUARD NOT ORIG REL ASSESS & MGT SRV PROV W/IN PREV 7 DAYS NOR LEAD ASSESS & MGT SRV/PX W/IN NXT 24 HR/SOON APT;5-10 MIN MED DIS 01/16 DoD TELE ASSESS & MGT SRV PROV QUAL NONPHYS HLTH CARE PRO TO EST PAT,PARENT,GUARD NOT ORIG REL ASSESS & MGT SRV PROV W/IN PREV 7 DAYS NOR LEAD ASSESS & MGT SRV/PX W/IN NXT 24 HR/SOON APT;5-10 MIN MED DIS 01/04 DoD TELE ASSESS & MGT SRV PROV QUAL NONPHYS HLTH CARE PRO TO EST PAT,PARENT,GUARD NOT ORIG REL ASSESS & MGT SRV PROV W/IN PREV 7 DAYS NOR LEAD ASSESS & MGT SRV/PX W/IN NXT 24H/SOON APT; 11-20 MIN MED DIS 12/10 DoD DETERMINATION OF REFRACTIVE STATE 08/06 DoD TELE ASSESS & MGT SRV PROV QUAL NONPHYS HLTH CARE PRO TO EST PAT,PARENT,GUARD NOT ORIG REL ASSESS & MGT SRV PROV W/IN PREV 7 DAYS NOR LEAD ASSESS & MGT SRV/PX W/IN NXT 24 HR/SOON APT;5-10 MIN MED DIS 08/06 DoD TELE ASSESS & MGT SRV PROV QUAL NONPHYS HLTH CARE PRO TO EST PAT,PARENT,GUARD NOT ORIG REL ASSESS & MGT SRV PROV W/IN PREV 7 DAYS NOR LEAD ASSESS & MGT SRV/PX W/IN NXT 24 HR/SOON APT;5-10 MIN MED DIS 08/01 DoD ULTRASOUND, UTERUS, REAL TIME WITH IMAGE DOCUMENTATION, LIMITED (EG, HEART BEAT, PLACENTAL LOCATION, POSITION AND/OR QUALITATIVE AMNIOTIC FLUID VOLUME), 1 OR MORE FETUSES 12/02 DoD ULTRASOUND, UTERUS, REAL TIME WITH IMAGE DOCUMENTATION, LIMITED (EG, HEART BEAT, PLACENTAL LOCATION, POSITION AND/OR QUALITATIVE AMNIOTIC FLUID VOLUME), 1 OR MORE FETUSES 11/24 DoD ULTRASOUND, UTERUS, REAL TIME WITH IMAGE DOCUMENTATION, LIMITED (EG, HEART BEAT, PLACENTAL LOCATION, POSITION AND/OR QUALITATIVE AMNIOTIC FLUID VOLUME), 1 OR MORE FETUSES 11/18 DoD COORDINATED CARE FEE, RISK ADJUSTED MAINTENANCE 11/09 DoD ULTRASOUND, UTERUS, REAL TIME WITH IMAGE DOCUMENTATION, LIMITED (EG, HEART BEAT, PLACENTAL LOCATION, POSITION AND/OR QUALITATIVE AMNIOTIC FLUID VOLUME), 1 OR MORE FETUSES 11/03 [facility] SUBSEQ CARE VISIT () [EXCLS:PATIENTS WHO ARE SEEN FOR A CONDITION UNREL TO / CARE (EG,AN UP RESPIR INFECT;PATIENTS SEEN FOR CONSULTATION ONLY,NOT FOR CONT CARE)] 10/25 [facility] SUBSEQ CARE VISIT () [EXCLS:PATIENTS WHO ARE SEEN FOR A CONDITION UNREL TO / CARE (EG,AN UP RESPIR INFECT;PATIENTS SEEN FOR CONSULTATION ONLY,NOT FOR CONT CARE)] 10/19 [facility] SUBSEQ CARE VISIT () [EXCLS:PATIENTS WHO ARE SEEN FOR A CONDITION UNREL TO / CARE (EG,AN UP RESPIR INFECT;PATIENTS SEEN FOR CONSULTATION ONLY,NOT FOR CONT CARE)] 10/06 [facility] ULTRASOUND, UTERUS, REAL TIME WITH IMAGE DOCUMENTATION, LIMITED (EG, HEART BEAT, PLACENTAL LOCATION, POSITION AND/OR QUALITATIVE AMNIOTIC FLUID VOLUME), 1 OR MORE FETUSES 09/22 [facility] ULTRASOUND, UTERUS, REAL TIME WITH IMAGE DOCUMENTATION, LIMITED (EG, HEART BEAT, PLACENTAL LOCATION, POSITION AND/OR QUALITATIVE AMNIOTIC FLUID VOLUME), 1 OR MORE FETUSES 09/12 [facility] ULTRASOUND, UTERUS, REAL TIME WITH IMAGE DOCUMENTATION, LIMITED (EG, HEART BEAT, PLACENTAL LOCATION, POSITION AND/OR QUALITATIVE AMNIOTIC FLUID VOLUME), 1 OR MORE FETUSES 09/05 [facility] SUBSEQ CARE VISIT () [EXCLS:PATIENTS WHO ARE SEEN FOR A CONDITION UNREL TO / CARE (EG,AN UP RESPIR INFECT;PATIENTS SEEN FOR CONSULTATION ONLY,NOT FOR CONT CARE)] 08/31 [facility] ULTRASOUND, UTERUS, REAL TIME WITH IMAGE DOCUMENTATION, LIMITED (EG, HEART BEAT, PLACENTAL LOCATION, POSITION AND/OR QUALITATIVE AMNIOTIC FLUID VOLUME), 1 OR MORE FETUSES 08/18 [facility] MEDICAL NUTRITION THERAPY; GROUP (2 OR MORE INDIVIDUAL(S)), EACH 30 MINUTES 08/16 [facility] EDUCATION &TRAINING, PATIENT SELF-MGT QUALIFIED, NONPHYSICIAN HEALTH QUALITY ASSURANCE LEAD USING STANDARDIZED CURRICULUM, [id number] W THE PATIENT (COULD INCL CAREGIVER/FAMILY) EA 30 MIN; 2-4 PATIENTS 08/11 [facility] SCREENING [place] SMEAR; OBTAINING, PREPARING AND CONVEYANCE OF CERVICAL OR VAGINAL SMEAR TO LABORATORY 08/03 [facility] ULTRASOUND, UTERUS, REAL TIME WITH IMAGE DOCUMENTATION,TRANSVAG INAL 07/04 [facility] NO SIGNIFICANT DEPRESSIVE SYMPTOMS CATEGORIZED BY USING A STANDARDIZED DEPRESSION ASSESSMENT TOOL (MDD) 06/29 [facility] POSTOPERATIVE FOLLOW-UP VISIT, NORMALLY INCLUDED IN THE SURGICAL PACKAGE, INDICATE THAT EVALUATION & MANAGEMENT SERVICE WAS PERFORMED DURING A POSTOPERATIVE PERIOD REASON RELATED ORIGINAL PROCEDURE 05/09 DoD UNLISTED SPECIAL SERVICE, PROCEDURE OR REPORT 04/25 [facility] PRESCRIPTION OF OPTICAL AND PHYSICAL CHARACTERISTICS OF AND FITTING OF CONTACT LENS, WITH MEDICAL SUPERVISION OF ADAPTATION; CORNEAL LENS, BOTH EYES, EXCEPT FOR APHAKIA 03/29 DoD PSYCHIATRIC EVALUATION OF HOSPITAL RECORDS, OTHER PSYCHIATRIC REPORTS, PSYCHOMETRIC AND/OR PROJECTIVE TESTS, AND OTHER ACCUMULATED DATA FOR MEDICALDIAGNOSTIC PURPOSES 09/22 [facility] PSYCHIATRIC EVALUATION OF HOSPITAL RECORDS, OTHER PSYCHIATRIC REPORTS, PSYCHOMETRIC AND/OR PROJECTIVE TESTS, AND OTHER ACCUMULATED DATA FOR MEDICALDIAGNOSTIC PURPOSES 08/19 [facility] [employer] Med Svc Qual Nonphys Healthcare Prof Estab Patient Internet Med [facility] Qual Nonphys Healthcare Prof Estab Patient 10629 01/20 JAZZMINE BURCIAGA [facility] Non-Physician Phone Call To Patient/Provider Brief (5-10min) Non-Physician Phone Call To Patient/Provider Brief (5-10min) 37856 01/13 LADAN SERRANO [facility] Non-Physician Phone Call To Patient/Provider Brief (5-10min) Non-Physician Phone Call To Patient/Provider Brief (5-10min) 99554 12/23 ZAKIA MENDEZ DoD Non-Physician Phone Call To Patient/Provider Brief (5-10min) Non-Physician Phone Call To Patient/Provider Brief (5-10min) 34861 11/21 WALE MORA [facility] Non-Physician Phone Call To Patient/Provider Brief (5-10min) Non-Physician Phone Call To Patient/Provider Brief (5-10min) 32904 08/21 AMANDA SHOOK Non-Physician Phone Call To Patient/Provider Brief (5-10min) Non-Physician Phone Call To Patient/Provider Brief (5-10min) 89368 08/19 WALE MORA [facility] Allergy Percutaneous tests - allergenic extracts Allergy Percutaneous tests - allergenic extracts 22634 08/09 [facility] Non-Physician Phone Call To Patient/Provider Brief (5-10min) Non-Physician Phone Call To Patient/Provider Brief (5-10min) 47854 07/31 AMANDA SHOOK DoD Non-Physician Phone Call To Patient/Provider Brief (5-10min) Non-Physician Phone Call To Patient/Provider Brief (5-10min) 57605 07/17 AMANDA SHOOK Patch Testing Patch Testing 56073 07/12 [facility] Patch Testing Patch Testing 91366 07/10 [facility] Non-Physician Phone Call To Patient/Provider Brief (5-10min) Non-Physician Phone Call To Patient/Provider Brief (5-10min) 94448 07/09 AMANDA SHOOK [facility] Allergy Sensitivity Patch Testing 21 To 30 Tests Allergy Sensitivity Patch Testing 21 To 30 Tests 95697 07/08 JOSE ALCAZAR Allergy Sensitivity Patch Testing 11 To 20 Tests Allergy Sensitivity Patch Testing 11 To 20 Tests 25815 07/08 JOSE ALCAZAR Allergy Sensitivity Patch Testing Up To 10 Tests Allergy Sensitivity Patch Testing Up To 10 Tests 05819 07/08 JOSE ALCAZAR Non-Physician Phone Call To Patient/Provider Brief (5-10min) Non-Physician Phone Call To Patient/Provider Brief (5-10min) 14722 07/03 AMANDA SHOOK Non-Physician Phone Call To Patient/Provider Brief (5-10min) Non-Physician Phone Call To Patient/Provider Brief (5-10min) 99719 06/05 AMANDA SHOOK Non-Physician Phone Call To Patient/Provider Brief (5-10min) Non-Physician Phone Call To Patient/Provider Brief (5-10min) 60238 06/03 AMANDA SHOOK Non-Physician Phone Call To Patient/Provider Brief (5-10min) Non-Physician Phone Call To Patient/Provider Brief (5-10min) 08985 04/25 AMANDA SHOOK Immunization Administration One Vaccine Immunization Administration One Vaccine 97461 12/25 ANN MARIE PATEL [facility] Modalities Electrical Stimulation Modalities Electrical Stimulation 50793 07/09 [facility] Physical or manipulative therapy performed for maintenance rather than yazidism 07/09 [facility] Physical Therapy: ___ Se ion Segments, 15 Minutes Each Physical Therapy: ___ Session Segments, 15 Minutes Each 46240 07/09 [facility] Physical Medicine Physical Therapy Re-Evaluation Physical Medicine Physical Therapy Re-Evaluation 13219 07/09 [facility] Physical or manipulative therapy performed for maintenance rather than yazidism 07/02 [facility] [place] Physical Therapy: ___ Se ion Segments, 15 Minutes Each Physical Therapy: ___ Session Segments, 15 Minutes Each 99718 07/02 [facility] T [facility] Modalities Electrical Stimulation Modalities Electrical Stimulation 33188 07/02 [facility] Physical Medicine Physical Therapy Re-Evaluation Physical Medicine Physical Therapy Re-Evaluation 71141 07/02 [facility] Physical or manipulative therapy performed for maintenance rather than yazidism 06/27 [facility] Modalities Electrical Stimulation Modalities Electrical Stimulation 50581 06/27 [facility] Physical Therapy: ___ Se ion Segments, 15 Minutes Each Physical Therapy: ___ Session Segments, 15 Minutes Each 60573 06/27 [facility] Physical Medicine Physical Therapy Re-Evaluation Physical Medicine Physical Therapy Re-Evaluation 74719 06/27 [facility] Positioning cushion/pillow/wedge, any shape or size, includes all components and acce ories 06/26 [facility] Physical or manipulative therapy performed for maintenance rather than yazidism 06/26 [facility] Physical Therapy Mobilization Joint Physical Therapy Mobilization Joint 38776 06/26 [facility] Physical Therapy: ___ Se ion Segments, 15 Minutes Each Physical Therapy: ___ Session Segments, 15 Minutes Each 44544 06/26 [facility] Intrauterine Device (IUD) Insertion Gynecologic Services Intrauterine Device (IUD) Insertion [id number] 12/22 DEDRICKTIFFANY [facility] Gynecologic Services Intrauterine Device (IUD) Removal Gynecologic Services Intrauterine Device (IUD) Removal 44123 12/22 TIFFANY TSE [facility] Immunization Administration One Vaccine Immunization Administration One Vaccine 73354 12/21 SOLANGE HATFIELD [facility] Screening papanicolaou smear; obtaining, preparing and conveyance of cervical or vaginal smear to laboratory 11/07 [facility] ECG Interpretation And Report Only ECG Interpretation And Report Only 87023 10/23 KEEGAN VILLELA [facility] Comprehensive Audiometry Comprehensive Audiometry 10028 11/29 JOAQUÍN DESAI Tympanometry With Reflex Threshold Measurements Tympanometry With Reflex Threshold Measurements 28360 11/29 JOAQUÍN DESAI Evoked Otoacoustic Carlyn ions Comprehensive Evoked Otoacoustic Emissions Comprehensive 16970 11/29 JOAQUÍN DESAI Ophthalmological Prior Patient Start Intermediate Level Care Ophthalmological Prior Patient Start Intermediate Level Care 31396 11/28 GREYSON GERONIMO Prescription & Fitting Bilateral Corneal Lenses (Not Aphakia Prescription & Fitting Bilateral Corneal Lenses (Not Aphakia 92685 11/23 GREYSON GERONIMO Ophthalmological Prior Patient Start Intermediate Level Care Ophthalmological Prior Patient Start Intermediate Level Care 64543 11/23 GREYSON GREONIMO Determination Of Refractive State Determination Of Refractive State 90742 09/19 GREYSON GERONIMO Ophthalmological New Patient Start Comprehensive Care Ophthalmological New Patient Start Comprehensive Care 11708 09/19 GREYSON GERONIMO Physical or manipulative therapy performed for maintenance rather than yazidism 02/12 DEEPTI BRAUN Modalities Heat Hot Packs Modalities Heat Hot Packs 80627 02/12 DEEPTI BRAUN Modalities Electrical Stimulation Unattended Modalities Electrical Stimulation Unattended 70674 02/12 DEEPTI BRAUN Physical Medicine Physical Therapy Evaluation Physical Medicine Physical Therapy Evaluation 71379 02/12 DEEPTI BRAUN [facility] Binocular Microscopy Special ENT Services Binocular Microscopy 70990 01/26 ANN RODRIGUEZ Comprehensive Audiometry Comprehensive Audiometry 50393 01/15 JOAQUÍN DESAI Tympanometry With Reflex Threshold Measurements Tympanometry With Reflex Threshold Measurements 50795 01/15 JOAQUÍN DESAI Evoked Otoacoustic Carlyn ions Comprehensive Evoked Otoacoustic Emissions Comprehensive 84937 01/15 JOAQUÍN DESAI Wet tal, including preparations of vaginal, cervical or skin specimens 11/16 JULIUS VAZQUEZ All pota ium hydroxide (jurgen) preparations 11/16 JULIUS VAZQUEZ Measuremt Post-Voiding Resid Urine, Bladder Capacity Ultrasd Measuremt Post-Voiding Resid Urine, Bladder Capacity Ultrasd 78529 11/01 LONDON WARD Complex Bladder Flow Rate Studies Complex Bladder Flow Rate Studies 80275 11/01 LONDON WARD Cystoscopy (Diagnostic) Cystoscopy (Diagnostic) 77061 11/01 LONDON WARD Indications for procedure: Please see previous notes for details. 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 Here for cystoscopy/PE. She had recent flare, which was treated successfully with amytriptyline. She also had h/o endometriosis in the past as well. Cystoscopy/PE: Details of procedure: Once informed consent was obtained from the patient, she was brought to the cystoscopy suite and placed supine on the table. Her legs were placed in the lithotomy position, and her genitalia were prepped and draped in the standard fashion. 2% lidocaine jelly was instilled per urethra as a local anesthetic. The external genitalia were examined, and found to be free of lesions. The meatus appeared normal, and her vaginal mucosa was not friable, nor atrophic. The scope was inserted into the urethra, and guided proximally. There were no urethral lesions or stricture. The bladder and bladder neck were carefully inspected. There were no suspicious lesions in the bladder . Both ureteral orifices were orthotopic, with clear efflux bilaterally. The scope was removed and the bladder left full. A limited pelvic exam was then done with speculum. Valsalva maneuvers were performed. There was no CARLOS on either Valsalva or cough. Aa and Ba= -1, Ap and Bp= -1; C=-6. No tender points or masses on vaginal exam. The procedure was then terminated, and the patient tolerated the procedure very well, without significant pain. She then executed a uroflow/pvr: Qmax 25.2 mls/sec, vv 395.7 mls, pvr 25 mls; Suero curve. [facility] Automated UA Without Microscopic Exam Automated UA Without Microscopic Exam 42026 10/26 LONDON WARD [facility] Automated UA Without Microscopic Exam Automated UA Without Microscopic Exam 82483 07/08 VENITA TOUSSAINT [facility] Fundus Photography Fundus Photography 80733 12/18 GONZÁLEZ DONNELLY External Ocular Photography External Ocular Photography 80815 12/18 GONZÁLEZ DONNELLY Determination Of Refractive State Determination Of Refractive State 01544 12/18 GONZÁLEZ DONNELLY Ophthalmological New Patient Start Comprehensive Care Ophthalmological New Patient Start Comprehensive Care 29742 12/18 GONZÁLEZ DONNELLY Ophthalmological Sensorimotor Exam Ophthalmological Sensorimotor Exam 45582 12/18 GONZÁLEZ DONNELLY Non-Physician Phone Call To Patient/Provider Brief (5-10min) Non-Physician Phone Call To Patient/Provider Brief (5-10min) 78983 10/23 DAWIT BOONE [facility] Health And Behav A e mt Each 15 Min Initial A e ment Health And Behav Assessmt Each 15 Min Initial Assessment 82652 08/22 MARITA RAUSCH DoD Health And Behav A e mt Each 15 Min Initial A e ment Health And Behav Assessmt Each 15 Min Initial Assessment 78295 08/20 MIGDALIA SKAGGS Non-Physician Phone Call To Patient/Provider Brief (5-10min) Non-Physician Phone Call To Patient/Provider Brief (5-10min) 33603 09/24 CHRISTIANA MUNOZ Determination Of Refractive State Determination Of Refractive State 42792 07/30 SHARON LEWIS Ophthalmological Prior Patient Start Comprehensive Care Ophthalmological Prior Patient Start Comprehensive Care 22722 07/30 SHARON LEWIS Screening papanicolaou smear; obtaining, preparing and conveyance of cervical or vaginal smear to laboratory 07/24 RUSS LUNDY Non-Physician Phone Call To Pt/Provider Intermed (11-20 min) Non-Physician Phone Call To Pt/Provider Intermed (11-20 min) 71911 05/21 JORGE ALBRIGHT Non-Physician Phone Call To Patient/Provider Brief (5-10min) Non-Physician Phone Call To Patient/Provider Brief (5-10min) 57778 02/04 SABRINA QUINTANILLA Contraceptive IntraUterine Device (e.g., Progestacert IUD), including implants and supplies 01/23 RUSS LUNDY Non-Physician Phone Call To Patient/Provider Brief (5-10min) Non-Physician Phone Call To Patient/Provider Brief (5-10min) 21191 01/22 SABRINA QUINTANILLA Non-Physician Phone Call To Patient/Provider Brief (5-10min) Non-Physician Phone Call To Patient/Provider Brief (5-10min) 01902 01/07 CHRISTIANA MUNOZ Non-Physician Phone Call To Pt/Provider Intermed (11-20 min) Non-Physician Phone Call To Pt/Provider Intermed (11-20 min) 54743 12/10 JORGE ALBRIGHT Non-Physician Phone Call To Patient/Provider Brief (5-10min) Non-Physician Phone Call To Patient/Provider Brief (5-10min) 92865 08/09 JORGE ALBRIGHT Determination Of Refractive State Determination Of Refractive State 05590 08/06 Tee CLEARY Ophthalmological Prior Patient Start Comprehensive Care Ophthalmological Prior Patient Start Comprehensive Care 78919 08/06 Tee CLEARY Non-Physician Phone Call To Patient/Provider Brief (5-10min) Non-Physician Phone Call To Patient/Provider Brief (5-10min) 98642 08/01 JORGE ALBRIGHT Ultrasound Obstetric Limited Evaluation Ultrasound Obstetric Limited Evaluation 55277 12/02 JACKIE THOMAS [facility] OB Services Antepartum Care Only Subsequent Single Visit OB Services Antepartum Care Only Subsequent Single Visit 0502F 12/02 JACKIE THOMAS OB Services Antepartum Care Only Subsequent Single Visit OB Services Antepartum Care Only Subsequent Single Visit 0502F 11/24 LENA COLLINS Ultrasound Obstetric Limited Evaluation Ultrasound Obstetric Limited Evaluation 43141 11/24 LENA COLLINS Ultrasound Obstetric Limited Evaluation Ultrasound Obstetric Limited Evaluation 80397 11/18 LENA COLLINS OB Services Antepartum Care Only Subsequent Single Visit OB Services Antepartum Care Only Subsequent Single Visit 0502F 11/18 LENA COLLINS Non-Physician Phone Call To Patient/Provider Brief (5-10min) Non-Physician Phone Call To Patient/Provider Brief (5-10min) 00967 ZAKIA MENDEZ [facility] Waiver services; not otherwise specified (NOS) ARNOLDO GONZALEZ [facility] Coordinated care fee, risk adjusted maintenance 11/09 NOLAN GOOD Case Management, each 15 minutes 11/09 NOLAN GOOD coordinated care via pt, via clinicians & desktop support manager in clinic, via [facility] outside sales account manager [facility] Ultrasound Obstetric Limited Evaluation Ultrasound Obstetric Limited Evaluation 36383 11/03 JACKIE THOMAS [facility] OB Services Antepartum Care Only Subsequent Single Visit OB Services Antepartum Care Only Subsequent Single Visit 0502F 11/03 JACKIE THOMAS DoD OB Services Antepartum Care Only Subsequent Single Visit OB Services Antepartum Care Only Subsequent Single Visit 0502F 10/25 LENA COLLINS DoD Ultrasound Obstetric Limited Evaluation Ultrasound Obstetric Limited Evaluation 66242 10/25 LENA COLLINS DoD Ultrasound Obstetric Limited Evaluation Ultrasound Obstetric Limited Evaluation 70645 10/19 WILLIAMJACKIE JOHNSON BJORN DoD OB Services Antepartum Care Only Subsequent Single Visit OB Services Antepartum Care Only Subsequent Single Visit 0502F 10/19 WILLIAMJACKIE BJORN DoD OB Services Antepartum Care Only Subsequent Single Visit OB Services Antepartum Care Only Subsequent Single Visit 0502F 10/06 WILLIAMJACKIE BJORN DoD Ultrasound Obstetric Limited Evaluation Ultrasound Obstetric Limited Evaluation 64387 10/06 WILLIAM JACKIE BJORN DoD Ultrasound Obstetric Limited Evaluation Ultrasound Obstetric Limited Evaluation 75843 09/22 WILLIAMJACKIE BJORN DoD OB Services Antepartum Care Only Subsequent Single Visit OB Services Antepartum Care Only Subsequent Single Visit 0502F 09/22 WILLIAMJACKIE BJORN DoD OB Services Antepartum Care Only Subsequent Single Visit OB Services Antepartum Care Only Subsequent Single Visit 0502F 09/12 WILLIAMJACKIE BJORN DoD Ultrasound Obstetric Limited Evaluation Ultrasound Obstetric Limited Evaluation 94625 09/12 WILLIAM, JACKIE BJORN DoD Ultrasound Obstetric Limited Evaluation Ultrasound Obstetric Limited Evaluation 12309 09/05 WILLIAMJACKIE BJORN DoD OB Services Antepartum Care Only Subsequent Single Visit OB Services Antepartum Care Only Subsequent Single Visit 0502F 09/05 WILLIAMJACKIE BJORN DoD OB Services Antepartum Care Only Subsequent Single Visit OB Services Antepartum Care Only Subsequent Single Visit 0502F 08/31 WILLIAMJACKIE BJORN DoD Ultrasound Obstetric Limited Evaluation Ultrasound Obstetric Limited Evaluation 70236 08/31 WILLIAM DALVIPIN BJORN DoD Medical Nutrition Therapy Group (2 or More Individual(s)) Medical Nutrition Therapy Group (2 or More Individual(s)) 53015 08/22 REJI IRBY DoD Ultrasound Obstetric Limited Evaluation Ultrasound Obstetric Limited Evaluation 63056 08/18 WILLIAMJACKIE BJORN DoD OB Services Antepartum Care Only Subsequent Single Visit OB Services Antepartum Care Only Subsequent Single Visit 0502F 08/18 JACKIE THOMAS Patient Counseling Medical Management Two To Four Patients Patient Counseling Medical Management Two To Four Patients 14515 08/11 TERRENCE SIGALA Screening papanicolaou smear; obtaining, preparing and conveyance of cervical or vaginal smear to laboratory 08/03 JACKIE THOMAS OB Services Antepartum Care Only First Visit, With Report OB Services Antepartum Care Only First Visit, With Report 0500F 08/03 JACKIE THOMAS Ultrasound [place] [address] 08/03 JACKIE THOMAS Ultrasound [place] [address] 07/04 JACKIE THOMAS Preventive Med Standardized Depre ion Screening: No Significant Symptoms Preventive Med Standardized Depression Screening: No Significant Symptoms 3352F 06/30 TERRENCE SIGALA Patient Counseling Medical Management Five To Eight Patients Patient Counseling Medical Management Five To Eight Patients 28685 06/30 TERRENCE SIGALA Postoperative Visit, Without Charge Postoperative Visit, Without Charge 07495 05/09 JACKIE THOMAS Prescription & Fitting Bilateral Corneal Lenses (Not Aphakia Prescription & Fitting Bilateral Corneal Lenses (Not Aphakia 16591 03/29 Tee CLEARY Determination Of Refractive State Determination Of Refractive State 04769 03/29 Tee CLEARY Ophthalmological New Patient Start Comprehensive Care Ophthalmological New Patient Start Comprehensive Care 06351 03/29 Tee CLEARY Psychiatric Evaluation Review of Records and Reports Psychiatric Evaluation Review of Records and Reports 17201 09/22 RONAN DE LOS SANTOS Psychiatric Evaluation Review of Records and Reports Psychiatric Evaluation Review of Records and Reports 98936 08/19 RONAN DE LOS SANTOS Psychiatric Therapy Environmental Intervention Psychiatric Therapy Environmental Intervention 09200 07/30 MARITA NUR [facility] Social History Combined list of available smoking, tobacco, and other social history from [facility] facilities. Social History Type Response Date Comment Sourc e This section is an empty social history section. [facility] Assessment and Plan Combined list of future care activities from [facility] facilities (e.g., assessment and plan notes, appointments, orders, and referrals). Additional future care activities may be listed in the Plan of Care section. Result Assessment and Plan Date Source Assessment and Plan No data available for this section 10/24/2024 Ambulatory Pharmacy Functional Status Combined list of recent functional and cognitive assessments recorded at [facility] ([facility] Functional Glade Measurement (FIM) Scale: 1 = Total Assistance (Subject = 0% +), 2 = Maximal Assistance (Subject = 25% +), 3 = Moderate Assistance (Subject = 50% +), 4 = Minimal Assistance (Subject = 75% +), 5 = Supervision, 6 = Modified Glade (Device), 7 = Complete Glade (Timely, Safely). Assessment Date/Time Source Assessment Type Assessment Skill Assessment Score Assessment Details No data available for this section
--- OUTSIDE RECORDS SUMMARY | 2024-10-24 10:00 | XMS_ITS | Clinical Summary ---
Author Organization [facility] Address [address] [place] [address] Care Team Providers Care Automatic Engraver Name Role Phone Lexus Covarrubias MD Primary Care Provider Source Comments [facility],non-owned Affiliates and Associated Physician Practices is amultiple site organization consisting of ambulatory clinics and hospital sitesin [place], [place], [place] and [place]. This disclosure is being madepursuant to the Care Everywhere program and may not contain all information available regarding this patient. Last updated 17[facility] Allergies Active Allergy Reactions Criticality Noted Date Comments Compazine Other 12/25/2023 Metoclopramide Myalgias,Unknown High 01/10/2010 muscle spasms Pt. reports reaction as Muscle Spasms. Prochlorperazine Myalgias,Unknown High 01/10/2010 muscle spasms Pt. reports reaction as Muscle Spasms. Medications * Be aware that medications may not be up to date on this document. Alwaysverify current medications with the patient. Levothyroxine Sodium (Tirosint-YONATHAN) 75 MCG/ML SOLNIndications :Hypothyroidism Take 75 mcg by mouth once daily Reasons: Underactive Thyroid Active liothyronine (Cytomel) 5 MCG tablet Take 1 (one) tablet by mouth once daily Active amphetamine-dex troamphetamine (Adderall) 20 MG tablet Take 1 (one) tablet by mouth every morning Active cyclobenzaprine (Flexeril) 5 MG tablet Take 1 (one) tablet by mouth 3 times daily as needed Active Levonorgestrel (Liletta, 52 MG,) 20.1 MCG/DAY IUD 1 (one) device by Intrauterine route once Active colestipol (Colestid) 1 GM tablet Take 1 (one) tablet by mouth 2 times daily 3 Active vitamin D3 (Cholecalcifero l) 25 MCG (1000 UNITS) tablet TAKE 4 TABLETS BY MOUTH EVERY DAY Active famotidine (Pepcid) 20 MG tablet 1 tablet Orally Once a day for 30 days 4 Active ondansetron (Zofran) 4 MG tablet Active mupirocin (Bactroban) 2 % ointmentIndicat ions:Folliculit is Apply to affected area 2 times daily 30 g 1 4 Active Active Problems Problem Noted Date Diagnosed Date Migraine headache 12/25/2023 Female cystocele 12/25/2023 Anxiety 12/25/2023 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), 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 Interstitial cystitis 05/11/2021 Endometriosis 05/11/2021 Family History Medical History Relation Name Comments Diabetes; unknown type Other fam hx Thyroid Disease Other fam hx Relation Name Status Comments Other fam hx Social History Tobacco Use Types Packs/Day Years Used Date Smoking Tobacco: Never Smokeless Tobacco: Never Tobacco Cessation:Counseling Given: Not Answered Alcohol Use Standard Drinks/Week Comments Never 0 (1 standard drink = 0.6 oz pur e alcohol) Comments No Sex and Gender Information Value Date Recorded Sex Assigned at Not on file Legal Sex 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 Gender Identity Female 01/29/2023 12: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 Sexual Orientation Not on file Last Filed Vital Signs Vital Sign Reading Time Taken Comments Blood Pressure 113/75 12/25/2023 10:57 AM CDT Pulse 111 08/29/2023 3:27 PM CDT Temperature 36.5 C (97.7 F) 12/25/2023 10:57 AM CDT Respiratory Rate - - Oxygen Saturation 98% 08/29/2023 3:27 PM CDT Inhaled Oxygen Concentration - - Weight 68 kg (150 lb) 12/25/2023 10:57 AM CDT Height 172.7 cm (5' 8) 12/25/2023 10:57 AM CDT Body Mass Index 22.81 12/25/2023 10:57 AM CDT Plan of Treatment Health Maintenance Due Date Last Done Comments LIPID TESTING 1982 HIV SCREENING 1997 DTAP/TDAP/TD VACCINES (1 - Tdap) 2001 HEPATITIS B VACCINE (1 of 3 - 19+ 3-dose series) 2001 HPV VACCINE (1 - 3-dose SCDM series) 2009 COVID-19 VACCINE ( season) 2023 06/27/2021, 05/27/2020, 05/05/2020 DEPRESSION SCREENING 02/27/2024 INFLUENZA VACCINE (#1) 2024 , 03/16/2020, 01/10/2019, Additional history exists MAMMOGRAM 01/05/2025 01/05/2023, 12/27, 01/05/2023 PAP SMEAR 06/24/2026 06/25/2023, 06/25/2023 ZOSTER VACCINE (1 of 2) 02/19/2032 HEPATITIS C SCREENING Completed 11/29/2021 HIB VACCINE Aged Out No longer eligi ble based on patient's age to complete this topic MENINGOCOCCAL (Group B) VACCINE SHARED DECISION-MAKING Aged Out No longer eligible based on patient's age to complete this topic MENINGOCOCCAL GROUPS A/C/Y/W VACCINE Aged Out No longer eligible based on patient's age to complete this topic PNEUMOCOCCAL VACCINE Aged Out No long er eligible based on patient's age to complete this topic Insurance Care Teams Automatic Engraver Relationship Specialty Start Date End Date Lexus Covarrubias MD [address] [id number] PCP - General Internal Medicine 08/29/23
--- OUTSIDE RECORDS SUMMARY | 2024-10-24 10:00 | XMS_ITS | Clinical Summary ---
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 Gender Identity Not on file Sexual Orientation Not on file Obstetrics History Para Term AB IAB SAB Ectopic Multiple Livin g Live Births 3 3 3 Date Outcome GA Total Labor Labor/2nd/3rd Weight Sex Type Anes PTL Monisha A1 A5 Name Clin Term Term Term Plan of Treatment Health Maintenance Due Date Last Done Comments Cervical Cancer Screening 1982 Depression Screening 1982 Hepatitis C Screening 1982 Varicella Vaccines (1 of 2 - 13+ 2-dose series) 1995 Regular Well Visit/Exam 18-64 02/19/2000 HPV Vaccines (1 - 3-dose SCDM series) 2009 Covid-19 Vaccine ( season) 2023 06/27/2021, 05/27/2020, 05/05/2020 Breast Cancer Screening-Mammogram 01/06/2024 01/05/2023 Influenza Vaccine (#1) 2024 , 01/17/2022, 03/16/2020, Additional history exists DTaP/Tdap/Td Vaccine (10 - Td or Tdap) 03/16/2030 03/16/2020, 03/07/2020, 05/25/2010, Additional history exists Hepatitis B Screening Completed 03/16/2020, 997 Pneumococcal vaccine <65 Aged Out No longer eligible based on patient's age to complete this topic Procedures Procedure Name Priority Date/Time Associated Diagnosis Comments SCREENING MAMMOGRAM BILATERAL W DEEPAK Schedule Routine, Read Routine (OP Routine) 01/05/2023 8:59 AM TOBACCO FEEDER CATCHER Screening mammogram, encounter for from Last 3 Months or Most Recently Relevant to Health Maintenance Results * Screening Mammogram Bilateral W Deepak (01/05/2023 8:59 AM TOBACCO FEEDER CATCHER) Anatomical Region Laterality Modality Breast Bilateral Mammography Impressions 01/05/2023 11:57 AM TOBACCO FEEDER CATCHER BI-RADS ATLAS category (overall): 2 - Benign There is no mammographic evidence of malignancy. A 1 year screening mammogram is recommended. The patient has been or will be contacted. We recommend annual screening mammography for women at average risk of breast cancer beginning at age 40, based on guidelines of the [employer] (ACR Practice Parameter for the Performance of Screening and Diagnostic Mammography) and [employer]. For women with and elevated risk of breast cancer, please refer to the ACR Practice Parameter for specific screening recommendations. The patient will be entered into a reminder system with a target due date of 1 year for her next screening exam. Narrative 01/05/2023 11:57 AM TOBACCO FEEDER CATCHER Screening Mammogram Bilateral W Deepak: 01/05/23 The study was acquired using full field digital technology and interpreted from soft copy. 2D digital mammographic views, as well as 3D digital tomosynthesis were performed in the CC and MLO projections. CLINICAL: Screening mammogram, encounter for. No relevant medical history has been documented for this patient. No known family history of breast cancer. COMPARISON: Baseline Screening Mammography. No prior mammography is available for comparison. BREAST TISSUE: The breasts are heterogeneously dense, which may obscure small masses. FINDINGS: There are multiple similar-appearing, round and oval masses with partially circumscribed, partially obscured margins in both breasts. These are considered to be benign based on their multiplicity, bilaterality, and morphology. There are benign appearing scattered microcalcifications in both breasts. There is no definite suspicious finding in either breast on mammogram. us Self Screening Mammogram IMG MAMMO PROCEDURES Fi nal Result from Last 3 Months or Most Recently Relevant to Health Maintenance Insurance [facility] Care Teams Industrial Editor Relationship Specialty Start Date End Date Lexus Covarrubias MD [address] [place] [id number] PCP - General Internal Medicine 02/02/22
--- OUTSIDE RECORDS SUMMARY | 2024-10-24 10:00 | XMS_ITS | Clinical Summary ---
Author Organization [facility] Address [address] [facility] [address] [place] [address] Care Team Providers Care Associate Trainer Name Role Phone Unavailable Primary Care Provider Unavailabl e Allergies Active Allergy Reactions Criticality Noted Date Comments Metoclopramide Hcl Muscle Pain High 05/06/2022 muscle spasms Prochlorperazine Muscle Pain High 05/06/2022 muscle spasms Medications lisdexamfetamin e (Vyvanse) 50 mg capsule Take 1 Capsule (50 mg) by mouth daily. 30 Capsule 05/06/2022 2:58 PM R D ENGINEER 3 Active lisdexamfetamin e (VYVANSE) 70 mg capsule Take 1 Capsule (70 mg) by mouth daily. Max Daily Amount: 70 mg 30 Capsule 08/01/2022 6:25 PM CDT 3 Active lisdexamfetamin e (VYVANSE) 70 mg capsule Take 1 Capsule (70 mg) by mouth daily. Max Daily Amount: 70 mg 30 Capsule 06/29/2022 3:46 PM CDT 3 Active lisdexamfetamin e (VYVANSE) 70 mg capsule Take 1 capsule by mouth daily 30 Capsule 3 Active lisdexamfetamin e (VYVANSE) 70 mg capsule Take 1 capsule by mouth daily 30 Capsule 09/04/2022 4:23 PM CDT 3 Active lisdexamfetamin e (Vyvanse) 50 mg capsule Take 1 Capsule (50 mg) by mouth daily. 30 Capsule 10/12/2022 4:51 PM CDT 3 Active lisdexamfetamin e (VYVANSE) 70 mg capsule Take 1 Capsule (70 mg) by mouth daily. Max Daily Amount: 70 mg 30 Capsule 12/15/2022 12:19 PM CDT 3 Active sertraline (ZOLOFT) 25 mg tablet Take 1 Tablet (25 mg) by mouth daily. 30 Tablet 1 01/09/2023 2:10 PM R D ENGINEER 3 Active benzonatate (TESSALON) 100 mg capsule Take 1 capsule (100 mg total) by mouth 2 (two) times daily as needed for Cough. 14 Capsule 01/24/2023 7:45 PM R D ENGINEER 3 Active baclofen (LIORESAL) 10 mg tablet Take 1 Tablet (10 mg) by mouth daily at bedtime. 30 Tablet 01/24/2023 7:45 PM R D ENGINEER 3 Active montelukast (SINGULAIR) 10 mg tablet Take 1 Tablet (10 mg) by mouth daily. 30 Tablet 5 3 Active traZODone (DESYREL) 50 mg tablet TAKE 1 TABLET BY MOUTH EVERY EVENING NEEDED FOR INSOMNIA. 30 Tablet 01/25/2023 6:11 PM R D ENGINEER 3 Active citalopram (CeleXA) 10 mg tablet Take 1 Tablet (10 mg) by mouth daily. 30 Tablet 02/01/2023 1:29 PM R D ENGINEER 3 Active vilazodone (Viibryd) 10 mg Tablet Take 1 Tablet (10 mg) by mouth daily. 30 Tablet 02/28/2023 4:12 PM R D ENGINEER 4 Active phenazopyridine 200 mg tablet Take 1 Tablet (200 mg) by mouth 3 times daily for pain 15 Tablet 03/17/2023 3:53 PM R D ENGINEER 4 Active fexofenadine (ASHKAN) 180 mg tablet Take 1 Tablet (180 mg) by mouth daily. 90 Tablet 1 04/30/2023 4:24 PM R D ENGINEER 4 Active vilazodone (Viibryd) 20 mg Tablet Take 1 Tablet (20 mg) by mouth daily. 30 Tablet 05/11/2023 12:55 PM CDT 4 Active lisdexamfetamin e (VYVANSE) 70 mg capsule Take 1 Capsule (70 mg) by mouth daily. Max Daily Amount: 70 mg 30 Capsule 05/18/2023 6:56 PM CDT 4 Active loteprednol etabonate (Lotemax) 0.5 % gel Instill one drop into the right eye three times daily for one week 5 Gram 05/18/2023 6:56 PM CDT 4 Active dextroamphetami ne-amphetamine (AdderalL) 20 mg tablet Take 1 Tablet (20 mg) by mouth daily. Max Daily Amount: 20 mg 30 Tablet 07/03/2023 5:24 PM CDT 4 Active lisdexamfetamin e (VYVANSE) 70 mg capsule Take 1 Capsule (70 mg) by mouth daily in the morning. Max Daily Amount: 70 mg 30 Capsule 07/16/2023 7:48 PM CDT 4 Active dextroamphetami ne-amphetamine (AdderalL) 20 mg tablet Take 1 Tablet (20 mg) by mouth daily. Max Daily Amount: 20 mg 30 Tablet 09/21/2023 7:09 PM CDT 4 Active dextroamphetami ne-amphetamine (AdderalL) 20 mg tablet Take 1 Tablet (20 mg) by mouth daily. Max Daily Amount: 20 mg 30 Tablet 08/02/2023 6:48 PM CDT 4 Active lisdexamfetamin e (VYVANSE) 70 mg capsule Take 1 Capsule (70 mg) by mouth daily. Max Daily Amount: 70 mg 30 Capsule 09/21/2023 7:09 PM CDT 4 Active lisdexamfetamin e (VYVANSE) 70 mg capsule Take 1 capsule by mouth daily 30 Capsule 08/24/2023 2:20 PM CDT 4 Active colestipoL (COLESTID) 1 gram tablet Take 1 tablet (1 gram total) by mouth daily. 90 Tablet 1 12/21/2023 5:52 PM CDT 4 Active dextroamphetami ne-amphetamine (AdderalL) 20 mg tablet Take 1 Tablet (20 mg) by mouth daily. ( 12/27/23) Max Daily Amount: 20 mg 30 Tablet 4 Active dextroamphetami ne-amphetamine (AdderalL) 20 mg tablet Take 1 Tablet (20 mg) by mouth daily. Max Daily Amount: 20 mg 30 Tablet 4 Active dextroamphetami ne-amphetamine (AdderalL) 20 mg tablet Take 1 Tablet (20 mg) by mouth daily 30 Tablet 12/21/2023 5:52 PM CDT 4 Active lisdexamfetamin e (VYVANSE) 70 mg capsule Take 1 Capsule (70 mg) by mouth daily. ( 12/27/23) Max Daily Amount: 70 mg 30 Capsule 4 Active lisdexamfetamin e (VYVANSE) 70 mg capsule Take 1 Capsule (70 mg) by mouth daily. 30 Capsule 12/21/2023 5:52 PM CDT 4 Active lisdexamfetamin e (VYVANSE) 70 mg capsule Take 1 Capsule (70 mg) by mouth daily. Max Daily Amount: 70 mg 30 Capsule 11/21/2023 10:48 AM CDT 4 Active montelukast (SINGULAIR) 10 mg tablet Take 1 Tablet (10 mg) by mouth daily. 30 Tablet 3 12/09/2023 12:11 PM CDT 4 Active mupirocin (BACTROBAN) 2 % Ointment Apply to affected area 2 times daily. 22 Gram 1 12/29/2023 2:57 PM CDT 4 Active dextroamphetami ne-amphetamine (AdderalL) 20 mg tablet Take 1 Tablet (20 mg) by mouth daily. Max Daily Amount: 20 mg 30 Tablet 5 Active dextroamphetami ne-amphetamine (AdderalL) 20 mg tablet Take 1 Tablet (20 mg) by mouth daily. Max Daily Amount: 20 mg 30 Tablet 02/19/2024 12:14 PM R D ENGINEER 4 Active dextroamphetami ne-amphetamine (AdderalL) 20 mg tablet Take 1 Tablet (20 mg) by mouth daily. Max Daily Amount: 20 mg 30 Tablet 01/19/2024 4:04 PM R D ENGINEER 4 Active lisdexamfetamin e (VYVANSE) 70 mg capsule Take 1 Capsule (70 mg) by mouth daily in the morning. Max Daily Amount: 70 mg 30 Capsule 03/22/2024 5:47 PM R D ENGINEER 5 Active lisdexamfetamin e (VYVANSE) 70 mg capsule Take 1 Capsule (70 mg) by mouth daily in the morning. Max Daily Amount: 70 mg 30 Capsule 02/21/2024 7:49 PM R D ENGINEER 4 Active lisdexamfetamin e (VYVANSE) 70 mg capsule Take 1 Capsule (70 mg) by mouth daily. Max Daily Amount: 70 mg 30 Capsule 01/19/2024 4:04 PM R D ENGINEER 4 Active ondansetron (ZOFRAN ODT) 4 mg Tablet, Rapid Dissolve Take 1 Tablet (4 mg) by mouth every 6 hours as needed. 10 Tablet 01/21/2024 2:23 PM R D ENGINEER 4 Active methylPREDNISol one (Medrol, Thiago,) 4 mg Tablets, Dose Pack Take as directed on package after procedure 21 Tablet 01/29/2024 5:44 PM R D ENGINEER 4 Active dextroamphetami ne-amphetamine (AdderalL) 20 mg tablet Take 1 Tablet (20 mg) by mouth daily. Max Daily Amount: 20 mg 30 Tablet 07/07/2024 5:45 PM CDT 5 Active dextroamphetami ne-amphetamine (AdderalL) 20 mg tablet Take 1 Tablet (20 mg) by mouth daily. Max Daily Amount: 20 mg 30 Tablet 06/05/2024 3:37 PM CDT 5 Active dextroamphetami ne-amphetamine (AdderalL) 20 mg tablet Take 1 Tablet (20 mg) by mouth daily. Max Daily Amount: 20 mg 30 Tablet 04/17/2024 6:31 PM R D ENGINEER 5 Active vilazodone (Viibryd) 10 mg Tablet Take 1 Tablet (10 mg) by mouth daily. 30 Tablet 04/17/2024 6:31 PM R D ENGINEER 5 Active lisdexamfetamin e (Vyvanse) 70 mg capsule Take 1 Capsule (70 mg) by mouth daily. Max Daily Amount: 70 mg 30 Capsule 5 Active lisdexamfetamin e (VYVANSE) 70 mg capsule TAKE 1 CAPSULE BY MOUTH ONCE DAILY 30 Capsule 04/23/2024 6:55 PM R D ENGINEER 5 Active lisdexamfetamin e (VYVANSE) 70 mg capsule Take 1 Capsule (70 mg) by mouth daily. Max Daily Amount: 70 mg 30 Capsule 05/23/2024 3:31 PM CDT Active colestipoL (COLESTID) 1 gram tablet Take 1 Tablet (1,000 mg) by mouth daily. 90 Tablet 3 09/12/2024 7:19 PM CDT 5 Active fexofenadine (ASHKAN) 180 mg tablet Take 1 tablet (180 mg total) by mouth daily. 90 Tablet 3 05/30/2024 4:32 PM CDT 5 Active dextroamphetami ne-amphetamine (AdderalL) 20 mg tablet Take 1 Tablet (20 mg) by mouth daily. Max Daily Amount: 20 mg 30 Tablet Active lisdexamfetamin e (VYVANSE) 70 mg capsule Take 1 Capsule (70 mg) by mouth daily. Max Daily Amount: 70 mg 30 Capsule 06/21/2024 4:41 PM CDT Active dextroamphetami ne-amphetamine (AdderalL) 20 mg tablet Take 1 Tablet (20 mg) by mouth daily. Max Daily Amount: 20 mg 30 Tablet Active dextroamphetami ne-amphetamine (AdderalL) 20 mg tablet Take 1 Tablet (20 mg) by mouth daily. Max Daily Amount: 20 mg 30 Tablet Active vilazodone (Viibryd) 40 mg Tablet Take 1 Tablet (40 mg) by mouth daily. 30 Tablet 1 07/12/2024 5:22 PM CDT Active lisdexamfetamin e (VYVANSE) 70 mg capsule Take 1 Capsule (70 mg) by mouth daily. Max Daily Amount: 70 mg 30 Capsule 07/18/2024 6:24 PM CDT Active lisdexamfetamin e (VYVANSE) 70 mg capsule Take 1 Capsule (70 mg) by mouth daily. Max Daily Amount: 70 mg 30 Capsule 09/17/2024 7:27 PM CDT Active estradioL (Vivelle-Dot) 0.075 mg/24 hr patch APPLY 1 PATCH TO SKIN TWICE WEEKLY. ( APPLY 1 PATCH FOR 3 DAYS ALTERNATING WITH 1 PATCH FOR 4 DAYS EACH WEEK) 8 Patch 11 10/08/2024 2:20 PM CDT 5 Active desvenlafaxine succinate (Pristiq) 25 mg Tablet Sustained Release 24HR Extended Release 24 hour tablet Take 1 Tablet (25 mg) by mouth daily. 30 Tablet 5 Active vilazodone (VIIBRYD) 10 mg Tablet Take 1 Tablet (10 mg) by mouth daily. 3 Tablet 5 Active desvenlafaxine succinate (Pristiq) 25 mg Tablet Sustained Release 24HR Extended Release 24 hour tablet Take 1 tablet by mouth once a day 30 Tablet 07/18/2024 6:24 PM CDT 5 Active vilazodone (VIIBRYD) 10 mg Tablet Take 1 tablet by mouth once a day 3 Tablet 07/18/2024 6:24 PM CDT 5 Active lisdexamfetamin e (Vyvanse) 70 mg capsule Take 1 capsule by mouth every morning 30 Capsule 08/18/2024 5:59 PM CDT 5 Active baclofen (LIORESAL) 10 mg tablet Take 1 Tablet (10 mg) by mouth daily at bedtime. 30 Tablet 07/22/2024 6:04 PM CDT 5 Active cyclobenzaprine (FLEXERIL) 5 mg Tablet Take 1 Tablet (5 mg) by mouth 3 times daily as needed. 30 Tablet 07/22/2024 6:04 PM CDT 5 Active desvenlafaxine (Pristiq) 50 mg Extended Release 24 hour tablet Take 1 Tablet (50 mg) by mouth daily. 30 Tablet 2 10/20/2024 2:15 PM CDT 5 Active lisdexamfetamin e (Vyvanse) 70 mg capsule Take 1 capsule by mouth every morning 30 Capsule 5 Active lisdexamfetamin e (Vyvanse) 70 mg capsule Take 1 Capsule (70 mg) by mouth daily in the morning. 30 Capsule 10/23/2024 2:14 PM CDT 5 Active lisdexamfetamin e (Vyvanse) 70 mg capsule Take 1 Capsule (70 mg) by mouth daily in the morning. (09/13/24) 30 Capsule Active Encounters Date Type Department Care Team Description 09/30/2024 External Device Data [facility] Provider, Abstract 09/10/2024 External Device Data [facility] Provider, Abstract 09/10/2024 External Device Data [facility] Provider, Abstract 08/12/2024 External Device Data [facility] Provider, Abstract 07/29/2024 External Device Data [facility] Provider, Abstract from Last 3 Months Social History Tobacco Use Types Packs/Day Years Used Date Smoking Tobacco: Never Assessed Comments Unknown Sex and Gender Information Value Date Recorded Sex Assigned at Not on file Legal Sex Female 10:44 AM R D ENGINEER Gender Identity Not on file Sexual Orientation Not on file Plan of Treatment Health Maintenance Due Date Last Done Comments HEPATITIS B VACCINES (1 of 3 - 19+ 3-dose series) 2001 HPV/Cotest (21-29) 2003 HPV VACCINES (1 - 3-dose SCD M series) 2009 HPV/Cotest (30-65) 02/19/2012 BREAST CANCER SCREENING 2022 COVID-19 Vaccine (2023-2 5 season) 2023 06/27/2021, 05/27/2020, 05/05/2020 INFLUENZA VACCINE (#1) 2024 CERVICAL CANCER SCREENING 12/06/2024 PAP SMEAR 12/06/2024 12/06/2021 DTAP/TDAP/TD VACCINES (6 - T d or Tdap) 03/07/2030 03/07/2020, 06/11/1987, 08/26/1985, Additional history exists Insurance [employer]) [facility] [employer]
--- OUTSIDE RECORDS SUMMARY | 2024-10-24 10:01 | XMS_ITS | Patient Health Record ---
Author Organization [facility] ([id number]) Address [address] [place] [address] Care Team Providers Care Environmental Epidemiologist Name Role Phone Melany Morgan Primary Care Provider Unavailab alexi EucedamZa Unavailable [phone] Allergies Allergen (clinical drug ingredient) Drug/Non Drug Allergy documented on EMR Reaction Allergy Type Onset Date Status compazine (uncoded) other reaction Allergy Active metoclopramide Reglan (uncoded) Muscle spasms Allergy Active Reason For Referral No Information Medications Medication SIG (Take, Route, Frequency, Duration) Notes Start Date End Date Status Tirosint 50 MCG 1 capsule in the morning on an empty stomach Orally Once a day Active Vyvanse 50 MG 1 capsule in the morning Orally Once a day Active Montelukast Sodium 10 MG 1 tablet Orally Once a day; Duration: 30 days 12/05/2023 Active Flonase Allergy Relief 50 MCG/ACT 1 spray in each nostril Nasally Once a day Active Azelastine HCl 137 MCG/SPRAY 2 sprays in each nostril Nasally Twice a day; Duration: 30 days 12/05/2023 Active Adderall 10 MG 1 tablet Orally Twic e a day Active Levocetirizine Dihydrochloride 5 MG 1 tablet in the evening Orally Once a day; Duration: 30 days 12/05/2023 Active Colestipol HCl 1 GM 2 tablets Orally Onc e a day Active Fluticasone Propionate 50 MCG/ACT 2 sprays in each nostril Nasally Twice a day; Duration: 30 days 12/05/2023 Active Cetirizine HCl 10 MG 1 tablet Orally Onc e a day Not-Taking Famotidine 20 MG 1 tablet Orally Once a day; Duration: 30 days 12/05/2023 Active Vitamin D 50 MCG (1999) 1 tablet Oral ly Once a day Active Immunizations Vaccine Route Administration Date Status Comme nts DTaP < 7 y/o Unknown 01/09/2005 Administered Portal Inf ormation Hepatitis B (11-19) Unknown 11/19/1996 Administered Por thi Information Hepatitis B (20 and more) Unknown 03/16/2020 Administer ed Portal Information NOC Tdap Unknown 05/25/2010 Administered Portal Infor mation Social History Tobacco Use: Social History Observation Description Date Details (start date - stop date) Never Smoker NA - NA Tobacco Control (Standard) Question Answer Notes Tobacco use: Nonsmoker Problems Problem Type SNOMED Code ICD Code Onset Dates Problem Status W/U Status Risk Notes Problem Chronic allergic conjunctivitis (82849890) Other chronic allergic conjunctivitis (H10.45) Active confirmed Problem Allergic rhinitis caused by pollen (disorder) (39176304) Allergic rhinitis due to pollen (J30.1) Active confirmed Problem Allergic rhinitis (86525721) Other allergic rhinitis (J30.89) Active confirmed Problem Allergic rhinitis caused by animal hair and dander (124195380358917) Allergic rhinitis due to animal (cat) (dog) hair and dander (J30.81) Active confirmed Vital Signs Blood pressure diastolic 74 mm Hg 12/05/2023 Oximetry 98 % 12/05/2023 Height 68 in 12/05/2023 Blood pressure systolic 115 mm Hg 12/05/2023 Weight 150.8 lbs 12/05/2023 BMI 22.93 kg/m2 12/05/2023 Encounters Encounter Location Date Provider Diagnosis [facility] [address] [facility] [address] [place] [id number] 12/05/2023 Za Rendon Allergic rhinitis du e to animal (cat) (dog) hair and dander J30.81 ; Other allergic rhinitis J30.89 ; Other chronic allergic conjunctivitis H10.45 ; Dermatitis, unspecified L30.9 and Other pruritus L29.89 Assessments Encounter Date Diagnosis (ICD Code) Assessment Notes Treatment Notes Treatment Clinical Notes Section Notes 12/05/2023 Other allergic rhinitis (ICD-10 - J30.89) Follow allergen avoidance, meds and consider SCIT as an adjunctive treatment to current regimen 12/05/2023 Allergic rhinitis due to animal (cat) (dog) hair and dander (ICD-10 - J30.81) Given the history and symptoms, skin testing was performed to common aeroallergens to determine atopic status. Destini clearly suffers from atopic disease based upon our skin testing and clinical history. Accordingly, we have introduced a new, aggressive medication regimen, discussed nasal washes and allergy-specific avoidance measures. We also discussed adjunctive therapies including subcutaneous, specific allergen immunotherapy as relates to the treatment and prevention of atopic disease. She is currently considering the risks, benefits and alternatives to this care. Risks: bleeding, infection, allergic reaction, anaphylaxis; Benefits: reduced need for medications, improved symptoms, disease modification. Alternatives: watch/wait, change medication regimen, improve allergy avoidance measures. Follow-up in 1 month for interval evaluation and management 12/05/2023 Other chronic allergic conjunctivitis (ICD-10 - H10.45) Given ocular signs and symptoms I encouraged allergy avoidance measures and meds as above. If symptoms persist, consider adding additional medications including intraocular antihistamine/mas t cell stabilizer, PRN 12/05/2023 Dermatitis, unspecified (ICD-10 - L30.9) Facial dermatitis appears secondary to exposure to the dog. We discussed starting immunotherapy to help with control 12/05/2023 Other pruritus (ICD-10 - L29.89) Unclear cause for pruritus on her legs without itching. Start a trial of Xyzal, Singulair and famotidine. Skin is clear today. 12/05/2023 Other Plan Of Treatment No Information Insurance Providers Payer Name Payer Address Payer Phone Subscriber Number Group Number Insured Name Patient Relationship to Insured Coverage Start Date Coverage End Date [facility] [address] [place] [address] [id number] Destini Restrepo Self - patient is the insured Medical (General) History Medical History History ICD Code Dysthymia Endometriosis Hypothyroidism Surgical History Surgery Date(Month/Year) Cholecystectomy 09/17/2019 Small bowel resection 09/17/2019 Appendectomy 09/17/2019 Laparoscopy 02/26/2010 Laparoscopy 02/26/2001
[2024-10-24 10:02] VITALS: BP 115/64; PULSE 88; RESP 18; TEMP 36.4; O2SAT 100
[2024-10-24 10:09] LABS: EDUAAPPEAR Clear; EDUABILI Negative (Negative); EDUABLOOD Negative (Negative); EDUACOLOR1 Dark; EDUAGLUCOSE Negative (Negative); EDUAKETONE Negative (Negative); EDUALEUKO Negative (Negative); EDUANITRATE Negative (Negative); EDUAPH 5.5; EDUAPROTEIN Negative (Negative); EDUASPGRAVITY 1.025; EDUAUROBILI 0.2
== END 2024-10-24 10:26 | disposition home or self-care (01) ==
PROVIDERS: Emergency Provider Nurse Practitioner Family; PCP Nurse Practitioner
DX: N30.10 Interstitial cystitis (chronic) without hematuria (principal); E03.9 Hypothyroidism, unspecified
CPT/HCPCS: 81003; 87086; 99213; G0463